=== PATIENT | male | born 1940 | race Caucasian/White ===

== ENCOUNTER 2018-04-11 08:57 | Day surgery (SDC) | payer BC, MEDICARE ==
[~2018-04-11] VITALS: Ht 182.9 cm; Wt 91.2 kg
[~2018-04-11 08:57] MED LIST: ASP81TEC PO; ATR20T PO; CLC500CT PO; CPR500T PO; FNST5T PO; KETO-22 PO; MELA5CAP PO; MTP25TSR PO; TERA5CAP10 PO
--- OUTSIDE RECORDS SUMMARY | 2018-04-11 10:06 | XMS REPORT | Encounter Summary ---
Author Author [facility] Organization [facility] Address Unknown Phone Unavailable Care Team Providers Care Cooler Supervisor Name Role Phone Kailash Richardson MD, [facility] Unavailable Andrew Lemus MD Unavailable Sylvia Lynn RN Unavailable Unavailable Adonis Madsen MD PCP Reason for Visit * Reason Comments Test/procedure Enrollment confirmed for 30 day non looping [facility] Cardiolabs Encounter Details Date Type Department Care Team Description 04/05/2018 Documentation Cardiovascular Medicine Marcia Renee Test/procedure [facility] (Enrollment confirmed for [address] 30 day [place] [address] Cardiolabs) [phone] Social History Tobacco Use Types Packs/Day Years Used Date Never Smoker Smokeless Tobacco: Never Used Alcohol Use Drinks/Week oz/Week Comments Yes 9 Glasses of 45.0 wine and beer wine Sex Assigned at Date Recorded Not on file as of this encounter Functional Status Functional Status Response Date of Assessment Does the patient have a hearing impairment: No 01/26/2016 as of this encounter Progress Notes * Marcia Renee - 04/05/2018 5:29 PM [employer] Brand: Cardiolabs Type: Non-looping Length: 30 day Ordering Lisa Mcadams Diagnosis: I48.0 Afib, I44.7 LBBB Was insurance info faxed with enrollment: Insurance submitted with online enrollment in this encounter Plan of Treatment Not on fileas of this encounter Visit Diagnoses Not on filein this encounter
--- OUTSIDE RECORDS SUMMARY | 2018-04-11 10:06 | XMS REPORT | Encounter Summary ---
Author Author [facility] Organization [facility] Address Unknown Phone Unavailable Care Team Providers Care Felt Carbonizer Name Role Phone Kailash Richardson MD, [facility] Unavailable Andrew Lemus MD Unavailable Sylvia Lynn RN Unavailable Unavailable Adonis Madsen MD PCP Reason for Visit * Reason Comments Patient Questions Encounter Details Date Type Department Care Team Description 04/05/2018 Telephone Cardiovascular Medicine Evangelina Mccain [facility] [address] [place] [address] [phone] [place] [address] Social History Tobacco Use Types Packs/Day Years Used Date Never Smoker Smokeless Tobacco: Never Used Alcohol Use Drinks/Week oz/Week Comments Yes 9 Glasses of 45.0 wine and beer wine Sex Assigned at Date Recorded Not on file as of this encounter Functional Status Functional Status Response Date of Assessment Does the patient have a hearing impairment: No 01/26/2016 as of this encounter Miscellaneous Notes * Telephone Encounter - Evangelina Mccain RN - 04/05/2018 12:44 PM AVIATION NEUROPSYCHOLOGIST Notified patient KING will be put in the mail today. He will use his heart card with symptoms and periodically when he is not having symptoms over the next one month. ----- Message from Ashley Conrad LPN sent at 04/05/2018 9:57 AM AVIATION NEUROPSYCHOLOGIST ----- Regarding: FRONT DESK COORDINATOR- HM ? VM from patient on triage line. Said that FRONT DESK COORDINATOR wanted him to have holter monitor when he was done with the Tikosyn and it will tomorrow. He still does not have the monitor. Call back on cell. in this encounter Plan of Treatment Not on fileas of this encounter Visit Diagnoses Not on filein this encounter
--- OUTSIDE RECORDS SUMMARY | 2018-04-11 10:06 | XMS REPORT | Encounter Summary ---
Author Author [facility] Organization [facility] Address Unknown Phone Unavailable Care Team Providers Care Loan Representative Name Role Phone Kailash Richardson MD, FACC Unavailable Andrew Lemus MD Unavailable Sylvia Lynn RN Unavailable Unavailable Adonis Madsen MD PCP Reason for Referral * (Routine) Status Reason Specialty Diagnoses / Referred By Referred To Procedures Contact Contact New Request Procedures Jane Mcadams REQUEST FOR MD [facility] [address] [facility] [address] [place] [address] Reason for Visit * Reason Comments Paroxysmal Afib 1 month f/u s/p LAAA Encounter Details Date Type Department Care Team Description 03/08/2018 Office Visit Cardiovascular Medicine Jane Mcadams MD Paroxysmal Afib (1 month [place] [id number] [facility] [facility] s/p LAAA) [address] [place] [address] [place] [address] Social History Tobacco Use Types Packs/Day Years Used Date Never Smoker Smokeless Tobacco: Never Used Alcohol Use Drinks/Week oz/Week Comments Yes 9 Glasses of 45.0 wine and beer wine Sex Assigned at Date Recorded Not on file as of this encounter Last Filed Vital Signs Vital Sign Reading Time Taken Blood Pressure 122/66 03/08/2018 3:05 PM CDT Pulse 76 03/08/2018 3:05 PM CDT Temperature - - Respiratory Rate - - Oxygen Saturation - - Inhaled Oxygen - - Concentration Weight 90.7 kg (200 lb) 03/08/2018 3:05 PM CDT Height 180.3 cm (5' 11") 03/08/2018 3:05 PM CDT Body Mass Index 27.89 03/08/2018 3:05 PM CDT in this encounter Functional Status Functional Status Response Date of Assessment Does the patient have a hearing impairment: No 01/26/2016 as of this encounter Instructions * Patient Instructions - Evangelina Mccain RN - 03/08/2018 3:15 PM CDT Stop your Tikosyn after your current bottle is finished. Dr. Mcadams has ordered an Event monitor for you to use for 30 days in about one month. This monitor is shipped directly to your home and comes with detailed instructions. This will come from a company named [employer]. They will verify your insurance and contact you for outstanding cost. If you are concerned about cost(or have not received a call), when the package arrives you can call the 800 number that will be in the instructions and ask about cost prior to starting the event monitor. If you have not received the monitor within 2 weeks time; please call us at [phone] to let us know. We will investigate the delay and get back with you. Please schedule an appointment with Dr. Mcadams in 3 months. To schedule an appointment, please call [phone]. In order to provide you the best care possible we ask that you follow up as below: Please consider signing up for [employer]. For all questions, please call the nursing triage voicemail at [phone] Monday - Monday 8-5 only. Please leave a detailed message with your name, date of , and reason for your call. Please allow ~ 10 business days for the results of any testing to be reviewed. Please call our office if you have not heard from a nurse within this time frame in this encounter Progress Notes * Jane Mcadams MD - 03/08/2018 3:15 PM CDT Formatting of this note may be different from the original. Date of Service: 03/08/2018 Baltazar Parker is a 77 y.o. male. HPI Baltazar Parker presents to my office today in electrophysiology follow-up for history of atrial arrhythmias. As you know, he is a pleasant 77-year-old male with a past medical history paroxysmal atrial fibrillation, hypertension, moderate coronary artery disease, and underlying left bundle branch block who was last seen in the office by me in December. At that time, we discussed options for treatment of his atrial arrhythmias and opted to pursue ablation. The patient was taken the EP lab on 01/11/2018 where cryoablation was performed without difficulty. His post op course was uncomplicated and he was discharged home the following day. Baltazar returns to my office today accompanied by his . He tells me that he is doing well. He has had no chest pain, dizziness, syncope, or palpitations. He is walking 2 miles on the track about 3 times a week. He recalls one episode of A. fib that occurred the day after he was discharged home. It lasted about 24 hours. He described a sensation of aching along with palpitations and some shortness of breath. It was eventually resolved on its own. He has not had recurrence since. Vitals: 03/08/18 1505 BP: 122/66 Pulse: 76 Weight: 90.7 kg (200 lb) Height: 1.803 m (5' 11") Body mass index is 27.89 kg/m. Past Medical History Patient Active Problem List Diagnosis Date Noted Bradycardia with 41-50 beats per minute 01/27/2016 PAF (paroxysmal atrial fibrillation) ([facility]) 08/05/2015 01/26/16 Elective admission for Tikosyn loading 08/30/17 Echo: LVEF=65% With Abnormal Septal Motion. Moderate Concentric LVH. Normal Chamber Dimensions Qualitatively. Aortic Valve Sclerosis. Trace Mitral Valve Regurgitation. No Pericardial effusion. Mild Aortic Root Dilatation. PASP= 28mmHg 01/11/18-atrial fib ablation ([facility]) by Dr. Mcadams Chronic anticoagulation, on apixaban 08/05/2015 Ureteral stone 04/15/2010 Hyperlipidemia 03/22/2010 Essential hypertension 08/11/2008 Syncope 08/11/2008 A. 09/2008- Event monitor. LBBB (left bundle branch block) 08/11/2008 BPH (benign prostatic hypertrophy) 08/11/2008 Abnormal cardiovascular stress test 08/11/2008 CAD (coronary artery disease) 08/11/2008 08/04/08- Persantine myoview stress test at [facility]: Strong suspicion of mild reversible ischemia involving the anteroapical segment and true apex of the left ventricle. EF 58%. 08/11/08- Heart catherization at : Mild to moderate coronary artery disease. No evidence of high grade obstructive coronary disease. Low-normal ejection fraction. EF 50-55%. Left ventricular hypertrophy. Normal LVEDP. ROS Physical Exam GEN: well developed, well nourished, in no acute distress HEENT: unremarkable, no JVD CHEST: clear to auscultation bilaterally CV: Reg rhythm, nml rate; nml S1 & S2, no S3 or S4; no rub; 1/6 systolic murmur at RUSB ABD: soft, nontender, non-distended, positive bowel sounds EXT: no clubbing, cyanosis, or edema, 2+ distal pulses NEURO: alert and oriented x3, no focal deficits Cardiovascular Studies 12 lead EKG: Sinus rhythm, ventricular rate 76 bpm, LBBB, QRSd 154 msec, QTc 550 msec Problems Addressed Today Encounter Diagnoses Name Primary? PAF (paroxysmal atrial fibrillation) ([facility]) Yes LBBB (left bundle branch block) Assessment and Plan PAF (paroxysmal atrial fibrillation) ([facility]) Mr. Parker had one episode of atrial fibrillation that occurred just after discharge from his ablation. Since that time, he has done well without any recurrence. He is now 2 months status post ablation. I am going to continue tikosyn for another 30 days. At that time, he will discontinue it and will use a 30-day heart card monitor. I will see him back in follow-up in 3 months time for post ablation CTA. He is very happy with this plan. I have asked the patient to follow up with me in 3 months. Current Medications (including today's revisions) apixaban (ELIQUIS) 5 mg tab tablet Take 1 Tab by mouth twice daily. 08/05/15 Take 6 hours post hemostasis after cardiac cath. atorvastatin (LIPITOR) 20 mg PO tablet Take 20 mg by mouth at bedtime daily. Cod Liver Oil cap Take 2 Caps by mouth daily. dofetilide (TIKOSYN) 500 mcg capsule Take one capsule by mouth every 12 hours. finasteride (PROSCAR) 5 mg tablet Take 5 mg by mouth Daily. pantoprazole DR (PROTONIX) 40 mg tablet Take 1 tablet twice daily for 6 weeks after your ablation. sucralfate (CARAFATE) 1 gram tablet Take one tablet by mouth twice daily before meals. Take on an empty stomach. terazosin (HYTRIN) 5 mg capsule Take 5 mg by mouth at bedtime daily. in this encounter Miscellaneous Notes * Assessment & Plan Note - Jane Mcadams MD - 03/08/2018 4:13 PM CDT Associated Problem(s): PAF (paroxysmal atrial fibrillation) ([facility]) Mr. Parker had one episode of atrial fibrillation that occurred just after discharge from his ablation. Since that time, he has done well without any recurrence. He is now 2 months status post ablation. I am going to continue tikosyn for another 30 days. At that time, he will discontinue it and will use a 30-day heart card monitor. I will see him back in follow-up in 3 months time for post ablation CTA. He is very happy with this plan. in this encounter Plan of Treatment Name Priority Associated Diagnoses Order Schedule ECG 12-LEAD Routine PAF (paroxysmal atrial Ordered: 03/08/2018 fibrillation) ([facility]) LBBB (left bundle branch block) EVENT MONITOR Routine PAF (paroxysmal atrial Expected: 04/07/2018 fibrillation) ([facility]) (Approximate), Expires: LBBB (left bundle branch 03/08/2019 block) as of this encounter Procedures Procedure Name Priority Date/Time Associated Diagnosis Comments ECG-SCAN 03/08/2018 Results for this 4:20 PM CDT procedure are in the results section. in this encounter Results * ECG-SCAN (03/08/2018 4:20 PM) Narrative Performed At Ordered by an unspecified provider. in this encounter Visit Diagnoses Diagnosis PAF (paroxysmal atrial fibrillation) ([facility]) - Primary Atrial fibrillation LBBB (left bundle branch block) Other left bundle branch block
--- OUTSIDE RECORDS SUMMARY | 2018-04-11 10:06 | XMS REPORT | Encounter Summary ---
Author Author [facility] Organization [facility] Address Unknown Phone Unavailable Care Team Providers Care Haunted History Tour Guide Name Role Phone Kailash Richardson MD, FACC Unavailable Andrew Lemus MD Unavailable Sylvia Lynn RN Unavailable Unavailable Adonis Madsen MD PCP Reason for Visit * Reason Comments Other cta requested Encounter Details Date Type Department Care Team Description 03/20/2018 Telephone Cardiovascular Medicine Arleen Mackey, RASHARD Other ( cta requested) [address] [address] Social History Tobacco Use Types Packs/Day Years [...] encounter Miscellaneous Notes * Telephone Encounter - Arleen Mackey RN - 03/20/2018 1:05 PM ELECTRONIC WIRER ----- Message from Evangelina Mccain RN sent at 03/19/2018 3:40 PM ELECTRONIC WIRER ----- Regarding: CCTA request for 06/13 Requesting CCTA s/p LAAA AF TISSUE PACKER Requesting same day as OV on 06/13. Thanks! in this encounter Plan of Treatment Not on fileas of this encounter Visit Diagnoses Not on filein this encounter
--- OUTSIDE RECORDS SUMMARY | 2018-04-11 10:06 | XMS REPORT | Clinical Summary ---
Author Author [facility] Organization [facility] Address Unknown Phone Unavailable Care Team Providers Care Front Line Leader Name Role Phone Kailash Richardson MD, [facility] Unavailable Andrew Lemus MD Unavailable Sylvia Lynn RN Unavailable Unavailable Adonis Madsen MD PCP Source Comments Some departments are not documenting in the electronic medical record. If you do not see the information that you expected, contact Release of Information in the Health Information Management department at [phone] for further assistance in locating additional records.[facility] Allergies Active Allergy Reactions Severity Noted Date Comments Iodine RASH Medium 09/21/2015 Current Medications Prescription Sig. Disp. Refills Start End Date Status Date finasteride (PROSCAR) 5 Take 5 mg by mouth Daily. Active mg tablet atorvastatin (LIPITOR) 20 Take 20 mg by mouth at Active mg PO tablet bedtime daily. Cod Liver Oil cap Take 2 Caps by mouth Active daily. apixaban (ELIQUIS) 5 mg Take 1 Tab by mouth twice 08/05/19 Active tab tabletIndications: daily. 08/05/15 Take 6 16 Essential hypertension, hours post hemostasis LBBB (left bundle branch after cardiac cath. block), Coronary artery disease involving zuni coronary artery of zuni heart, angina presence unspecified, Hyperlipidemia, unspecified hyperlipidemia type, PAF (paroxysmal atrial fibrillation) (HCC), Chronic anticoagulation terazosin (HYTRIN) 5 mg Take 5 mg by mouth at Active capsule bedtime daily. pantoprazole DR Take 1 tablet twice daily 30 tablet 0 01/13/20 Active (PROTONIX) 40 mg for 6 weeks after your 18 tabletIndications: PAF ablation. (paroxysmal atrial fibrillation) ([facility]) sucralfate (CARAFATE) 1 Take one tablet by mouth 60 tablet 0 01/13/20 Active gram tabletIndications: twice daily before meals. 18 PAF (paroxysmal atrial Take on an empty stomach. fibrillation) ([facility]) dofetilide (TIKOSYN) 500 Take one capsule by mouth 120 capsule 3 01/12 Active mcg capsuleIndications: every 12 hours. 18 PAF (paroxysmal atrial fibrillation) ([facility]) Active Problems Problem Noted Date Bradycardia with 41-50 beats per minute 01/27/2016 PAF (paroxysmal atrial fibrillation) ([facility]) 08/05/2015 Overview: 01/26/16 Elective admission for Tikosyn loading 08/30/17 Echo: LVEF=65% With Abnormal Septal Motion. Moderate Concentric LVH. Normal Chamber Dimensions Qualitatively. Aortic Valve Sclerosis. Trace Mitral Valve Regurgitation. No Pericardial effusion. Mild Aortic Root Dilatation. PASP=28mmHg 01/11/18-atrial fib ablation (PVI) by Dr. Mcadams Last Assessment & Plan: Mr. Parker had one episode of atrial [...] He is very happy with this plan. Chronic anticoagulation, on apixaban 08/05/2015 Ureteral stone 04/15/2010 Hyperlipidemia 03/22/2010 Essential hypertension 08/11/2008 Syncope 08/11/2008 Overview: A09/2008- Event monitor. L ast Assessment & Plan: He has had no recent dizzy spells or syncope. We will continue to monitor him clinically. LBBB (left bundle branch block) 08/11/2008 BPH (benign prostatic hypertrophy) 08/11/2008 Abnormal cardiovascular stress test 08/11/2008 CAD (coronary artery disease) 08/11/2008 Overview: 08/04/08- Persantine myoview stress test at [facility]: Strong suspicion of mild reversible ischemia involving the anteroapical segment and true apex of the left ventricle. EF 58%. 08/11/08- Heart catherization at : Mild to moderate coronary artery disease. No evidence of high grade obstructive coronary disease. Low-normal ejection fraction. EF 50-55%. Left ventricular hypertrophy. Normal LVEDP. Encounters Date Type Specialty Care Team Description 04/05/2018 Documentation Cardiology Marcia Renee Test/procedure (Enrollment confirmed for 30 day non looping EVM Cardiolabs) 04/05/2018 Telephone Cardiology Evangelina Mccain RN Patient Questions 03/20/2018 Telephone Cardiology Arleen Mackey RN Other (cta requested ) 03/08/2018 Office Visit Cardiology Jane Mcadams MD Paroxysmal Afib (1 month f/u s/p LAAA) 01/18/2018 Telephone Cardiology Gina Landis RN Follow-up Phone Call (f/u LAAA 01/10/18 ) 01/11/2018 Hospital Cardiology Jane Mcadams MD No Show Encounter 01/11/2018 Hospital Cardiology Jane Mcadams MD PAF (paroxysmal atrial - Encounter fibrillation) ([facility]) 01/12/2018 01/11/2018 Procedure Pass Cardiology 01/11/2018 Surgery Cardiology Jane Mcadams MD INTRACARDIAC CATHETER ABLATION WITH COMPREHENSIVE ELECTROPHYSIOLOGIC EVALUATION - ATRIAL FIBRILLATION - CRYO - TRANSEPTAL 01/03/2018 Anesthesia Cardiology Yulissa Hare A, Event ANIMAL TECH from Last 3 Months Immunizations Name Dates Previously Given Next Due Flu Vaccine Trivalent >64 01/27/2016 Yo High-dose (Preservative Free) Family History Medical History Relation Name Comments Cancer Father Relation Name Status Comments Brother Alive healthy Child 4 children Alive healthy Father lung cancer (Age 75) Mother CHF (Age 82) Sister Alive parkinson's disease Social History Tobacco Use Types Packs/Day Years Used Date Never Smoker Smokeless Tobacco: Never Used Alcohol Use Drinks/Week oz/Week Comments Yes 9 Glasses of 45.0 wine and beer wine Sex Assigned at Date Recorded Not on file Last Filed Vital Signs Vital Sign Reading Time Taken Blood Pressure 122/66 03/08/2018 3:05 PM CDT Pulse 76 03/08/2018 3:05 PM CDT Temperature 36.5 C (97.7 F) 01/12/2018 8:20 AM CDT Respiratory Rate - - Oxygen Saturation 94% 01/12/2018 8:20 AM CDT Inhaled Oxygen - - Concentration Weight 90.7 kg (200 lb) 03/08/2018 3:05 PM CDT Height 180.3 cm (5' 11") 03/08/2018 3:05 PM CDT Body Mass Index 27.89 03/08/2018 3:05 PM CDT Plan of Treatment Health Maintenance Due Date Last Done Comments PHYSICAL (COMPREHENSIVE) 1947 EXAM DTAP/TDAP VACCINES (1 - 1959 Tdap) SHINGLES RECOMBINANT 1991 VACCINE (1 of 2) PNEUMONIA (PCV13/PPSV23) 2006 VACCINES (1 of 2 - PCV13) INFLUENZA VACCINE 12/06/2017 01/27/2016, 02/10/2010, 01/30/2009 Procedures Procedure Name Priority Date/Time Associated Diagnosis Comments ECG-SCAN 03/08/2018 Results for this 4:20 PM CDT procedure are in the results section. TELEMETRY STRIPS-SCAN 01/17/2018 Results for this 9:54 AM CDT procedure are in the results section. ECG-SCAN 01/13/2018 Results for this 10:30 PM CDT procedure are in the results section. ECG-SCAN 01/13/2018 Results for this 10:30 PM CDT procedure are in the results section. MAGNESIUM Add on 01/12/2018 Results for this 4:00 AM CDT procedure are in the results section. CBC Routine 01/12/2018 Results for this 4:00 AM CDT procedure are in the results section. BASIC METABOLIC PANEL Routine 01/12/2018 Results for this 4:00 AM CDT procedure are in the results section. ECG 12-LEAD Routine 01/12/2018 2:00 AM CDT COMPREHENSIVE Routine 01/11/2018 Results for this ELECTROPHYSIOLOGIC 2:01 PM CDT procedure are in the EVALUATION WITH CORONARY results section. SINUS/ LEFT ATRIUM INTRACARDIAC CATHETER Routine 01/11/2018 Results for this ABLATION WITH 2:01 PM CDT procedure are in the COMPREHENSIVE results section. ELECTROPHYSIOLOGIC EVALUATION - ATRIAL FIBRILLATION POC ACTIVATED CLOTTING 01/11/2018 Results for this TIME 12:18 PM CDT procedure are in the results section. ECG 12-LEAD Routine 01/11/2018 12:13 PM CDT POC ACTIVATED CLOTTING 01/11/2018 Results for this TIME 12:07 PM CDT procedure are in the results section. POC ACTIVATED CLOTTING 01/11/2018 Results for this TIME 11:16 AM CDT procedure are in the results section. POC ACTIVATED CLOTTING 01/11/2018 Results for this TIME 10:44 AM CDT procedure are in the results section. POC ACTIVATED CLOTTING 01/11/2018 Results for this TIME 10:16 AM CDT procedure are in the results section. POC ACTIVATED CLOTTING 01/11/2018 Results for this TIME 9:56 AM CDT procedure are in the results section. KAMAR W/O CONTRAST Routine 01/11/2018 Atrial fibrillation, Results for this 9:21 AM CDT unspecified type (HCC) procedure are in the results section. PROTIME INR (PT) STAT 01/11/2018 Results for this 7:30 AM CDT procedure are in the results section. TYPE & CROSSMATCH Routine 01/11/2018 Results for this 6:23 AM CDT procedure are in the results section. CBC STAT 01/11/2018 Results for this 6:23 AM CDT procedure are in the results section. MAGNESIUM STAT 01/11/2018 Results for this 6:23 AM CDT procedure are in the results section. BASIC METABOLIC PANEL STAT 01/11/2018 Results for this 6:23 AM CDT procedure are in the results section. from Last 3 Months Results * ECG-SCAN (03/08/2018 4:20 PM) Narrative Performed At Ordered by an unspecified provider. * TELEMETRY STRIPS-SCAN (01/17/2018 9:54 AM) Narrative Performed At Ordered by an unspecified provider. * ECG-SCAN (01/13/2018 10:30 PM) Narrative Performed At Ordered by an unspecified provider. * ECG-SCAN (01/13/2018 10:30 PM) Narrative Performed At Ordered by an unspecified provider. * CBC (01/12/2018 4:00 AM) Only the most recent of 2 results within the time period is included. White Blood Cells 13.7 (H) 4.5 - 11.0 K/UL [facility] RBC 3.73 (L) 4.4 - 5.5 M/UL [facility] Hemoglobin 12.2 (L) 13.5 - 16.5 GM/DL [facility] Hematocrit 35.5 (L) 40 - 50 % MAIN LAB MCV 95.0 80 - 100 FL [facility] MCH 32.7 26 - 34 PG MAIN LAB MCHC 34.4 32.0 - 36.0 G/DL MAIN LAB RDW 13.1 11 - 15 % [facility] Platelet Count 203 150 - 400 K/UL MAIN LAB MPV 7.4 7 - 11 FL MAIN LAB Specimen Blood Performing Organization Address [facility] Phone Number [facility] [address] [place] [address] * MAGNESIUM (01/12/2018 4:00 AM) Only the most recent of 2 results within the time period is included. Magnesium 2.1 1.6 - 2.6 mg/dL MAIN LAB Performing Organization Address [facility] Phone Number [facility] [address] [place] [address] * BASIC METABOLIC PANEL (01/12/2018 4:00 AM) Only the most recent of 2 results within the time period is included. Sodium 135 (L) 137 - 147 MMOL/L MAIN LAB Potassium 3.9 3.5 - 5.1 MMOL/L [facility] Chloride 105 98 - 110 MMOL/L [facility] CO2 24 21 - 30 MMOL/L [facility] Anion Gap 6 3 - 12 [facility] Glucose 111 (H) 70 - 100 MG/DL [facility] Blood Urea Nitrogen 16 7 - 25 MG/DL MAIN LAB Creatinine 1.00 0.4 - 1.24 MG/DL MAIN LAB Calcium 8.5 8.5 - 10.6 MG/DL MAIN LAB eGFR Non >60 >60 mL/min [facility] Comment: The eGFR is not validated for use in drug dosing adjustments.Continue to use estimated creatinine clearance per dosing reference text.Please contact the Clinical Pharmacist for questions. eGFR >60 >60 mL/min [facility] Comment: The eGFR is not validated for use in drug dosing adjustments.Continue to use estimated creatinine clearance per dosing reference text.Please contact the Clinical Pharmacist for questions. Specimen Blood Performing Organization Address [facility] Phone Number [facility] [address] [place] [address] * EP STUDY (01/11/2018 2:01 PM) Impressions Performed At : OTHER OUTSIDE LAB Paroxysmal Atrial Fibrillation status post successful cryoballoon pulmonary vein isolation Intra-atrial pacing and intraventricular pacing. High dose isoproterenol infusion PLAN: - Sheaths out once ACT less than 250 - Will monitor patient overnight at the hospital. - Check access site/sites in the morning. - Continue anticoagulation with eliquis - Rhythm control medication: Start/Resume tikosyn for at least 3 months - Resume/Continue PPI at 40 mg twice daily for 6 weeks - Resume/Continue sucralfate at 1 gram twice daily for 4 weeks - IV diuresis and potassium replacement as needed. - The patient will be contacted in one week's time to assess for symptoms. - Outpatient follow up with me in 4 weeks. Narrative Performed At OTHER OUTSIDE LAB ELECTROPHYSIOLOGY PROCEDURE PROCEDURES: AFIB Ablation by PVI Pulmonary Vein Antral Isolation (28 mm Cryoballoon) EP study with CS catheter placement and pacing Intra-atrial pacing and intraventricular pacing. Single transseptal puncture General Anesthesia Right and left heart catheterization Intracardiac echocardiography Ultrasound for venous access Three-dimensional intracardiac electroanatomic mapping Acute drug testing/IV Drug-Isuprel Administration Esophagram/Esosure Stylet Esophageal Mobilization BRIEF SUMMARY: Mr. Parker is a 77 year old male with a past medical history of paroxysmal atrial fibrillation, moderate CAD, and sinus node dysfunction with LBBB who presents to the hospital for elective atrial fibrillation ablation.The patient has had an increasing AF burden. ATTENDING: Jane Mcadams MD INDICATION FOR PROCEDURE: Symptomatic paroxysmal atrial fibrillation intolerant or refractory to anti-arrhythmic medication KAMAR done prior to the procedure showed atrial enlargement with no left atrial thrombus. CONSENT: The risks, benefits and alternatives to the procedure have been described to the patient in detail. All questions wre answered.The patient expressed understanding and has agreed to proceed. PRESENTATING RHYTHM:Sinus Rhythm. DETAILS OF PROCEDURE: The patient was brought to the EP Lab in a fasting state after informed and written consent was obtained. Cardiac rhythm, blood pressure, heart rate, respirations, oxygen saturation and level of consciousness were monitored prior to, throughout and after the procedure. General anesthesia was administered by trained staff members with the supervision of an anesthesiology attending. The patient was placed supine on the fluoroscopy table, prepped and draped in the usual sterile fashion. Local anesthetic was provided. Ultrasound was utilized to confirm femoral venous patency. Needle access was obtained under ultrasound guidance and a permanent recording obtained.Venous access was obtained using a micropuncture needle in the right and left femoral veins under fluoroscopic/anatomic and ultrasound guidance using the modified Seldinger technique.Guidewires were placed through each venous access brett 14 Fr short sheath and 6 Fr short sheath was placed in the right femoral vein and an 11 Fr intermediate length and 6 Fr short sheath were placed in the left femoral vein. PRE-PROCEDURE IMAGING: A [address] Angiogram was obtained and reviewed prior to the procedure which demonstrated two left pulmonary vein ostia and two right pulmonary vein ostia. The left atrium was moderately enlarged. INTRACARDIAC ECHO:Intracardiac echocardiography was performed under the guidance of fluoroscopy from the mid right atrium. Cardiac anatomy was assessed. There was trace baseline pericardial effusion. The left atrial size was enlarged. No thrombus was seen.Post-procedure, the intracardiac echocardiogram was repeated and there remained trace pericardial effusion. CATHETER PLACEMENT:The intracardiac echo catheter was advanced via the left femoral vein to the mid-right atrium. 20 mm Achieve Lasso catheter was advanced through the cryoballoon and the 28 mm Cryoballoon catheter were advanced via the Medtronic sheath into the left atrium after transseptal puncture.A deflectable decapolar catheter was advanced via the left femoral vein with the distal 10 poles in the CS. SINGLE TRANSSEPTAL PUNCTURE: We used the transseptal needle under the guidance of fluoroscopic images and intracardiac echo. The intra-atrial septum was punctured and left atrial access obtained. Pressure from the first puncture was 13/1 mm of Hg. Transseptal puncture occurred without difficulty. Immediately after puncture and prior to advancing the sheath, contrast was injected to confirm appropriate left atrial location. The septum was crossed at 5 o'clock. Anticoagulation with Heparin IV bolus was immediately provided after puncture. We titrated the heparin drip per protocol to keep ACT greater than 350 throughout the left atrial ablation. ACT's were checked every 15-20 minutes and adjusted per protocol. THREE DIMENSIONAL ELECTROANATOMIC MAPPING: An electro-anatomical map of portions of the left atrium was created utilizing the iList system using movement of the Achieve lasso catheter. PULMONARY VENOUS CRYOBALLOON ISOLATION: Pulmonary vein potentials were identified at the antra of each vein at baseline. Left superior pulmonary vein (LSPV) Attention was first directed to the left superior pulmonary vein. The Achieve catheter was advanced into the vein and the balloon was advanced to the ostium of the vein with care taken to make sure the balloon was not directed too far into the vein by monitoring the shape of the balloon on inflation.Contrast was injected once the balloon was inflated and confirmed that there was complete seal. Left inferior pulmonary vein (LIPV) Attention was then directed to the left inferior pulmonary vein. The Achieve catheter was advanced into the vein and the balloon was advanced to the ostium of the vein with care taken to make sure the balloon was not directed too far into the vein by monitoring the shape of the balloon on inflation.Contrast was injected once the balloon was inflated and confirmed that there was complete seal.We had significant temperature drop with cryoablation.Therefore, a esosure esophageal mobilizer was inserted to move the esophagus more posteriorly and rightward. Right superior pulmonary vein (RSPV) Attention was then directed to the right superior pulmonary vein. The Achieve catheter was advanced into the vein and the balloon was advanced to the ostium of the vein with care taken to make sure the balloon was not directed too far into the vein by monitoring the shape of the balloon on inflation. Contrast was injected once the balloon was inflated and confirmed that there was complete seal. Pacing of the right phrenic nerve was performed from the right subclavian vein and the right diaphragm capture monitored by palpation and CMAP during freezing. Right inferior pulmonary vein (RIPV) Attention was then directed to the right inferior pulmonary vein. The Achieve catheter was advanced into the vein and the balloon was advanced to the ostium of the vein with care taken to make sure the balloon was not directed too far into the vein by monitoring the shape of the balloon on inflation. Contrast was injected once the balloon was inflated and confirmed that there was complete seal. Pacing of the right phrenic nerve was performed from the right subclavian vein and the right diaphragm capture monitored by palpation and CMAP during freezing. Location Temp @ 30 Sec Time To Isolation Minimum Temp Duration Eso Temp Time to Zero LSPV -32 43 -47 127 22.5 11 LSPV -32 - -46 180 24.4 10 LIPV -34 49 -44 61 19.6 5 LIPV -34 - -45 101 26.4 7 RIPV -34 41 -46 180 35.2 7 RIPV -37 - -53 180 35.1 11 RSPV -38 26 -54 180 35 11 RSPV -38 - -55 150 35 10 Access Time 09:15 TS Time 09:43Physician: Dr. Mcadams Pre TS Fluoro 4 minDate: 01/11/2018 Cryo In 09:54 Cryo Out 11:35 LA Dwell Time 1:41 Total Fluoro 24 min Pulmonary vein conduction was then reassessed in each vein. Post ablation, pacing was done within and outside of the pulmonary vein to demonstrate conduction block both into and out of the vein.The total time from last ablation lesion to re-confirmation of pulmonary vein entrance block was about 20 minutes. After completion of ablation, an EP study was performed including left atrial pacing and recording. An esophageal temperature probe was used to monitor temperatures on the posterior wall. The esophagus course was leftward.We were prepared to came off cryo immediately when the esophageal temperature probe decreased to less than 28 degrees Celsius.We came off early for a temperature drop with ablation at the left inferior pulmonary vein.The minimum temperature obtained was 19.6 degrees C. The anesthesia personnel in the room moved the esophageal temperature probe in line with the level of ablation when treating the posterior wall. The electrophysiology nurse, anesthesia staff and physician continuously monitored the temperature. Dissociated Firing of the PVs: Did not occur. Vagal Effect: No marked response was present. Atrial Scarring: was not present. ESOPHAGOGRAM AND ESOPHAGEAL MOBILIZATION: An OG tube was inserted by our anesthesia colleagues prior to ablation. Liquid barium (40 mL) was injected via orogastric tube and the esophagus was visualised underfluroscopy. It was very close to the left-sided pulmonary veins. We then inserted mineral oil to lubricate the OG tube. The esosure stylet was then inserted into the orogastric tube. Its curve then retracted the esophagus to the opposite side so we could perform ablation on the left-sided veins with less temperature deviation. INTRAATRIAL PACING: Entrance and exit block across all four PVs was confirmed by intra-atrial pacing and by pacing inside each vein. DRUG INFUSION: Isoproterenol 20 mcg/min was initiated for 5 minutes. During this time, the patient had no atrial fibrillation. There was no significant atrial ectopy. Adenosine was not administered. RAPID PACING: Rapid atrial pacing x3 to 250 msec from the proximal CS did not induce atrial fibrillation or atrial flutter. DIAGNOSTIC EP STUDY: Intervals: Sinus, CL 800 msec, P wave duration 105 msec, NY interval 122 msec, QRSd 171 msec, QT 507 msec. AH interval 101 msec, HV interval 79 msec. LBBB AV Wenkebach: 350 msec VA Wenkebach: 420 msec. AV shan ERP: 600/<270 msec. Atrial ERP: 600/270 msec. The patient tolerated the procedure well. Dr. Mcadams was present throughout the procedure. Post ablation intracardiac echo showed no change in pericardial effusion or LA thrombus. FLUOROSCOPY TIME: 1148 seconds LEFT ATRIAL DWELL TIME: 1 minute 41 seconds Performing Organization Address [facility]/[employer] Phone Number OTHER OUTSIDE LAB * POC ACTIVATED CLOTTING TIME (01/11/2018 12:18 PM) Only the most recent of 2 results within the time period is included. Activated Clotting Time 232 s [facility]IN [facility] Performing Organization Address [facility] Phone Number [employer] [facility] [address] [place] [address] * POC ACTIVATED CLOTTING TIME (01/11/2018 11:16 AM) Only the most recent of 4 results within the time period is included. Activated Clotting Time 358 s [facility] Performing Organization Address [facility] Phone Number [employer] [facility]IN [facility] [address] [place] [address] * TRANSESOPHAGEAL ECHOCARDIOGRAM (01/11/2018 9:21 AM) BSA 2.1 m2 OTHER OUTSIDE LAB Referring Provider Adonsi Madsen OTHER OUTSIDE LAB CV ECHO PV CARD STRIPPER EP staff OTHER OUTSIDE LAB Cardiology Ultrasound Siemens [id number] OTHER OUTSIDE LAB Machine ECHO EF 65 % OTHER OUTSIDE LAB Narrative Performed At OTHER OUTSIDE LAB KAMAR performed in EP labs to evaluate [place]. 1. Normal LV size, wall motion with EF=65%. No intracardiac/[place] thrombus. 2. Moderate concentric LVH. 3. Normal RV size and function. 4. Normal LA & RA size. 5. No significant valvular abnormality. 6. No pericardial effusion. Performing Organization Address [employer] Phone Number OTHER OUTSIDE LAB * PROTIME INR (PT) (01/11/2018 7:30 AM) INR 1.2 0.8 - 1.2 [employer] MAIN LAB Specimen Blood Performing Organization Address [facility] Phone Number [employer] MAIN [facility] [address] [place] [address] * TYPE & CROSSMATCH (01/11/2018 6:23 AM) Units Ordered 2 MAIN LAB Crossmatch Expires 01/14/2018 MAIN LAB Record Check FOUND [facility] ABO/RH(D) O POS MAIN LAB Antibody Screen NEG [facility] Electronic Crossmatch YES MAIN LAB Specimen Blood Performing Organization Address City/State/Zipcode Phone Number MAIN [facility] [address] [place] [address] from Last 3 Months
--- OUTSIDE RECORDS SUMMARY | 2018-04-11 10:07 | XMS REPORT | Encounter Summary ---
Author Author [facility] Organization [facility] Address Unknown Phone Unavailable Care Team Providers Care Guest Relations Agent Name Role Phone Kailash Richardson MD, [facility] Unavailable Andrew Lemus MD Unavailable Sylvia Lynn RN Unavailable Unavailable Adonis Madsen MD PCP Reason for Visit * Reason Comments Follow-up Phone Call f/u [facility] 01/10/18 Encounter Details Date Type Department Care Team Description 01/18/2018 Telephone Cardiovascular Medicine Gina Landis, RASHARD Follow-up Phone Call (f/u [address] [facility] 01/10/18 ) [place] [address] Social History Tobacco Use Types Packs/Day Years [...] encounter Miscellaneous Notes * Telephone Encounter - Regina Landis RN - 01/18/2018 8:36 AM CDT 01/18/18 8:38 Attempted to contact pt "Mail box is full " unable to leave a message I spoke to pt.- he is out walking and doing well " I'm back to my normal ." Pt states that he did have an episode of a fib on Monday but he is back in a normal rhythm now. 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 Patient denies chest pain, denies persistent nausea, vomiting or fullness, denies dysphagia, denies odynophagia, denies hematemesis/ melena, denies confusion, denies symptoms of stroke/TIA / CALVIN, denies fever, chills rigors, denies symptoms of sepsis or systemic infection Patient denies dysuria, denies urinary frequency. Patient denies Swelling, denies Bleeding, denies groin site pain Patient denies shortness of breath, denies weight gain, denies BLE swelling. Verified appointment date/time/location with the patient for 1 mo post LAAA follow up. Scheduled on 02/05/18. Pt states that he has a conflict with the follow up appointment date. I will have scheduling call him to change appt date and time. Patient will plan to call the office with any change in symptoms, questions or concerns. in this encounter Plan of Treatment Not on fileas of this encounter Visit Diagnoses Not on filein this encounter
--- OUTSIDE RECORDS SUMMARY | 2018-04-11 10:07 | XMS REPORT | Encounter Summary ---
Author Author [facility] Organization [facility] Address Unknown Phone Unavailable Care Team Providers Care Electrical Technology Instructor Name Role Phone Kailash Richardson MD, FACC Unavailable Andrew Lemus MD Unavailable Sylvia Lynn RN Unavailable Unavailable Adonis Madsen MD PCP Encounter Details Date Type Department Care Team Description 01/11/2018 Procedure Pass [facility] [address] [place] [address] Social History Tobacco Use Types [...] impairment: No 01/26/2016 as of this encounter Plan of Treatment Not on fileas of this encounter Visit Diagnoses Not on filein this encounter
--- OUTSIDE RECORDS SUMMARY | 2018-04-11 10:07 | XMS REPORT | Encounter Summary ---
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 mg capsule Take 5 mg by mouth at bedtime daily. in this encounter Miscellaneous Notes * Procedures (Immed Post or Bedside) - Jane Mcadams MD - 01/11/2018 12:10 PM CDT Immediate post procedure note: Procedure: AF cryoablation Operators: Abbe Complications: none Preop Diagnosis: Atrial fibrillation Post op Diagnosis: same Findings: RFV x2, LFV x2. TS puncture x1. All 4 pulmonary veins isolated without difficulty. Esophagus right behind LIPV. Used esosure to move esophagus to right in order to isolate LIPV Specimens removed: none Estimated blood loss: 15 cc in this encounter Plan of Treatment Not on fileas of this encounter Procedures Procedure Name Priority Date/Time Associated Diagnosis Comments TELEMETRY STRIPS-SCAN 01/17/2018 Results for this 9:54 [...] CDT procedure are in the results section. PROTIME [...] results section. in this encounter Results * TELEMETRY STRIPS-SCAN (01/17/2018 9:54 AM) Narrative Performed At Ordered by an unspecified provider. * ECG-SCAN (01/13/2018 10:30 PM) Narrative Performed At Ordered by an unspecified provider. * ECG-SCAN (01/13/2018 10:30 PM) Narrative Performed At Ordered by an unspecified provider. * MAGNESIUM (01/12/2018 4:00 AM) Magnesium 2.1 1.6 - 2.6 mg/dL MAIN LAB Performing Organization Address [facility] Phone Number [facility] [address] [place] [address] * CBC (01/12/2018 4:00 AM) White Blood Cells 13.7 (H) 4.5 - 11.0 K/UL [facility] RBC 3.73 (L) 4.4 - 5.5 M/UL [facility] Hemoglobin 12.2 (L) 13.5 - 16.5 GM/DL [facility] Hematocrit 35.5 (L) 40 - 50 % MAIN LAB MCV 95.0 80 - 100 FL [facility] MCH 32.7 26 - 34 PG [facility] MCHC 34.4 32.0 - 36.0 G/DL [facility] RDW 13.1 11 - 15 % [facility] Platelet Count 203 150 - 400 K/UL [facility] MPV 7.4 7 - 11 FL [facility] Specimen Blood Performing Organization Address [facility] Phone Number [facility] [address] [place] [address] * BASIC METABOLIC PANEL (01/12/2018 4:00 AM) Sodium 135 (L) 137 - 147 MMOL/L [facility] MAIN [facility] Potassium 3.9 3.5 - 5.1 MMOL/L [facility] Chloride 105 98 - 110 MMOL/L [facility] CO2 24 21 - 30 MMOL/L [facility] Anion Gap 6 3 - 12 [facility] Glucose 111 (H) 70 - 100 MG/DL [facility] Blood Urea Nitrogen 16 7 - 25 MG/DL [facility] Creatinine 1.00 0.4 - 1.24 MG/DL [facility] Calcium 8.5 8.5 - 10.6 MG/DL [facility] eGFR Non >60 >60 mL/min [...] for questions. Specimen Blood Performing Organization Address City/State/Zipcode Phone Number [facility] [address] [place] [address] * EP STUDY (01/11/2018 2:01 PM) Impressions [...] the left atrium was created utilizing the Chatous system using movement of the Achieve lasso [...] 800 msec, P wave duration 105 msec, AK interval 122 msec, QRSd 171 msec, QT [...] 1 minute 41 seconds Performing Organization Address City/[facility] Phone Number OTHER OUTSIDE LAB * POC ACTIVATED CLOTTING TIME (01/11/2018 12:18 PM) Activated Clotting Time 232 s MAIN LAB Performing Organization Address [facility] Phone Number MA[facility] LAB [address] [place] [address] * POC ACTIVATED CLOTTING TIME (01/11/2018 12:07 PM) Activated Clotting Time 253 s [facility]IN [facility] Performing Organization Address [facility] Phone Number MA[facility] LAB [address] [place] [address] * POC ACTIVATED CLOTTING TIME (01/11/2018 11:16 AM) Activated Clotting Time 358 s [facility] MAIN [facility] Performing Organization Address City/[facility]/Zipcode Phone Number [facility] [address] [place] [address] * POC ACTIVATED CLOTTING TIME (01/11/2018 10:44 AM) Activated Clotting Time 360 s [facility]IN [facility] Performing Organization Address City/[facility] Phone Number [facility] [address] [place] [address] * POC ACTIVATED CLOTTING TIME (01/11/2018 10:16 AM) Activated Clotting Time 365 s [facility]IN [facility] Performing Organization Address City/[facility] Phone Number [facility] [address] [place] [address] * POC ACTIVATED CLOTTING TIME (01/11/2018 9:56 AM) Activated Clotting Time 297 s [facility]IN [facility] Performing Organization Address City/[facility] Phone Number [facility] [address] [place] [address] * PROTIME INR (PT) (01/11/2018 7:30 AM) INR 1.2 0.8 - 1.2 MAIN LAB Specimen Blood Performing Organization Address [facility] Phone Number [facility] [address] [place] [address] * CBC (01/11/2018 6:23 AM) White Blood Cells 5.2 4.5 - 11.0 K/UL [facility] RBC 4.44 4.4 - 5.5 M/UL [facility] Hemoglobin 14.5 13.5 - 16.5 GM/DL [facility] Hematocrit 41.8 40 - 50 % [facility] MCV 94.2 80 - 100 FL [facility] MCH 32.7 26 - 34 PG MAIN LAB MCHC 34.7 32.0 - 36.0 G/DL MAIN LAB RDW 12.8 11 - 15 % [facility] Platelet Count 217 150 - 400 K/UL MAIN LAB MPV 7.2 7 - 11 FL [facility]IN [facility] Specimen Blood Performing Organization Address [facility] Phone Number [facility] [address] [place] [address] * MAGNESIUM (01/11/2018 6:23 AM) Magnesium 1.9 1.6 - 2.6 mg/dL MAIN LAB Specimen Blood Performing Organization Address City/[facility]/Zipcode Phone Number MAIN LAB [address] [place] [address] * BASIC METABOLIC PANEL (01/11/2018 6:23 AM) Sodium 137 137 - 147 MMOL/L MAIN LAB Potassium 4.1 3.5 - 5.1 MMOL/L [facility] Chloride 106 98 - 110 MMOL/L MAIN LAB CO2 21 21 - 30 MMOL/L [facility] Anion Gap 10 3 - 12 [facility] Glucose 149 (H) 70 - 100 MG/DL [facility] Blood Urea Nitrogen 17 7 - 25 MG/DL MAIN LAB Creatinine 1.00 0.4 - 1.24 MG/DL MAIN LAB Calcium 9.2 8.5 - 10.6 MG/DL MAIN LAB eGFR Non >60 >60 mL/min MAIN LAB Comment: The eGFR is not validated for use in drug dosing adjustments.Continue to use estimated creatinine clearance per dosing reference text.Please contact the Clinical Pharmacist for questions. eGFR >60 >60 mL/min MAIN LAB Comment: The eGFR is not validated for use in drug dosing adjustments.Continue to use estimated creatinine clearance per dosing reference text.Please contact the Clinical Pharmacist for questions. Specimen Blood Performing Organization Address City/[facility]/Zipcode Phone Number [facility] [address] [place] [address] * TYPE & CROSSMATCH (01/11/2018 6:23 AM) Units Ordered 2 MAIN LAB Crossmatch Expires 01/14/2018 MAIN LAB Record Check FOUND MAIN LAB ABO/RH(D) O POS MAIN LAB Antibody Screen NEG MAIN LAB Electronic Crossmatch YES MAIN LAB Specimen Blood Performing Organization Address City/[facility]/Zipcode Phone Number MAIN LAB [address] [place] [address] in this encounter Visit Diagnoses Diagnosis PAF (paroxysmal atrial fibrillation) (HCC) - Primary Atrial fibrillation Essential hypertension Unspecified essential hypertension LBBB (left bundle branch block) Other left bundle branch block Coronary artery disease involving [place] coronary artery of [place] heart, angina presence unspecified Hyperlipidemia, unspecified hyperlipidemia type Chronic anticoagulation, on apixaban Long-term (current) use of anticoagulants Admitting Diagnoses Diagnosis ATRIAL FIBRILLATION PAF (paroxysmal atrial fibrillation) (HCC) Atrial fibrillation Administered Medications Medication Order MAR Action Action Date Dose Rate Site acetaminophen (TYLENOL) tablet 325-650 mg 325-650 mg, Oral, EVERY 4 HOURS PRN, Starting Lyssa 01/11/18 at 1213, Until Mon01/12/18 at 1111, Pain non-opioid: may be used alone or in combination with opioid analgesia, TOTAL ACETAMINOPHEN DOSE NOT TO EXCEED 4GM DAILY aluminum/magnesium hydroxide (MAALOX) oral suspension 30 mL 30 mL, Oral, EVERY 4 HOURS PRN, Starting Lyssa 01/11/18 at 0603, Until Mon01/12/18 at 1111, Indigestion/Heartburn, Admission/Obs/Extended Recovery apixaban (ELIQUIS) tablet 5 mg Given 01/11/2018 5 mg 5 mg, Oral, TWICE DAILY, First dose on 20:48 CDT Lyssa 01/11/18 at 2100, Until Discontinued, May crush 5 mg or 2.5 mg tablets and suspend in 60 mL of D5W followed by immediate delivery through a nasogastric tube. No information regarding administration of suspension by mouth is available. Restart at least 4 hours after hemostasis. NOTE: This is a HIGH ALERT Medication. Given 01/12/2018 5 mg 08:54 CDT aspirin EC tablet 81 mg Given 01/11/2018 81 mg 81 mg, Oral, AT BEDTIME DAILY, First 20:48 CDT dose on Lyssa 01/11/18 at 2100, Until Discontinued, Admission/Obs/Extended Recovery atorvastatin (LIPITOR) tablet 20 mg Given 01/11/2018 20 mg 20 mg, Oral, AT BEDTIME DAILY, First 20:49 CDT dose on Lyssa 01/11/18 at 2100, Until Discontinued, Admission/Obs/Extended Recovery diazePAM (VALIUM) injection 5 mg 5 mg, Intravenous, NEEDED (BOX FEEDER FROM RX), 1 dose, Starting Ylssa 01/11/18 at 1312, Until Mon01/12/18 at 1111, Other..., Anxiety for Sheath Removal diphenhydrAMINE (BENADRYL) capsule 50 mg Given 01/11/2018 50 mg 50 mg, Oral, ONCE, 1 dose, [facility] 01/11/18 at 07:26 CDT 0715 docusate (COLACE) capsule 100 mg 100 mg, Oral, DAILY PRN, Starting Lyssa 01/11/18 at 0603, Until Mon01/12/18 at 1111, Constipation PO, Hold for loose stools. dofetilide (TIKOSYN) capsule 500 mcg Given 01/11/2018 500 mcg 500 mcg, Oral, EVERY 12 HOURS, First 20:49 CDT dose on Lyssa 01/11/18 at 2100, Until Discontinued, NOTE: This is a HIGH ALERT Medication. Given 01/12/2018 500 mcg 08:55 CDT finasteride (PROSCAR) tablet 5 mg Given 01/12/2018 5 mg 5 mg, Oral, DAILY, First dose on Lyssa 08:57 CDT 01/11/18 at 1700, Until Discontinued, NOTE: If or wanting to become , do not handle broken tablets without gloves due to risk of defects. HYDROcodone/acetaminophen (NORCO) 5/325 mg tablet 1 tablet 1 tablet, Oral, EVERY 4 HOURS PRN, Starting Lyssa 01/11/18 at 1212, Until Mon01/12/18 at 1111, Pain PO, TOTAL ACETAMINOPHEN DOSE NOT TO EXCEED 4GM DAILY NOTE: This is a HIGH ALERT Medication. lidocaine (XYLOCAINE) 2 % jelly Given - See 01/11/2018 (URO-JET) OR/Proc 06:14 CDT Topical, ONCE, 1 dose, Lyssa 01/11/18 at Flowsheet 0615, Apply for urinary catheter placement lidocaine PF 1% (10 mg/mL) injection 0.1-2 mL 0.1-2 mL, Injection, NEEDED, Starting Lyssa 01/11/18 at 0603, Until Mon01/12/18 at 1111, Other..., for peripheral IV insertion, Admission/Obs/Extended Recovery magnesium sulfate 1 g/D5W 100 mL IVPB Given - New 01/11/2018 1 g 100 mL/hr 1 g, Intravenous, 100 mL, Administer Bag 16:59 CDT over 1 Hours, ONCE, 1 dose, Lyssa 01/11/18 at 1700, Each 1gm delivers 8.1 mEq Magnesium. Give prior to resuming Tikosyn at 2100 ondansetron (ZOFRAN) injection 4 mg 4 mg, Intravenous, EVERY 6 HOURS PRN, Starting Lyssa 01/11/18 at 1212, Until Mon01/12/18 at 1111, Nausea/Vomiting Injectable pantoprazole DR (PROTONIX) tablet 40 mg Given 01/11/2018 40 mg 40 mg, Oral, TWICE DAILY, First dose on 20:48 CDT [facility] 01/11/18 at 2100, Until Discontinued, Do not crush or chew tablet. Given 01/12/2018 40 mg 08:55 CDT sodium chloride 0.9 % infusion Given - New 01/11/2018 20 mL/hr 1,000 mL, Intravenous, at 20 mL/hr, Bag 06:26 CDT CONTINUOUS, Starting [facility] 01/11/18 at 0615, Until Mon01/12/18 at 1111, -EF >35%: NS @ 75 mL/hr to be started the morning of the procedure (not to exceed 750 mL) -EF <35%: NS @ 20 mL/hr to be started the morning of procedure (not to exceed 500 mL) sucralfate (CARAFATE) tablet 1 g Given 01/11/2018 1 g 1 g, Oral, TWICE DAILY BEFORE MEALS, 16:58 CDT First dose on [facility] 01/11/18 at 1715, Until Discontinued, Can be made into a slurry by placing 1 Sucralfate tablet in 30 mL water and allow to stand for 5 minutes. Continue for 4 weeks after ablation. Given 01/12/2018 1 g 08:55 CDT temazepam (RESTORIL) capsule 15 mg Given 01/11/2018 15 mg 15 mg, Oral, AT BEDTIME PRN, Starting 23:01 CDT [facility] 01/11/18 at 0603, Until Mon01/12/18 at 1111, Insomnia, Admission/Obs/Extended Recovery terazosin (HYTRIN) capsule 5 mg Given 01/11/2018 5 mg 5 mg, Oral, AT BEDTIME DAILY, First dose 20:49 CDT on [facility] 01/11/18 at 2100, Until Discontinued, Admission/Obs/Extended Recovery in this encounter
--- OUTSIDE RECORDS SUMMARY | 2018-04-11 10:08 | XMS REPORT | Encounter Summary ---
Author Author [facility] Organization [facility] Address Unknown Phone Unavailable Care Team Providers Care Water Superintendent Name Role Phone Kailash Richardson MD, [facility] Unavailable Andrew Lemus MD Unavailable Sylvia Lynn RN Unavailable Unavailable Adonis Madsen MD PCP Reason for Referral * Test Status Reason Specialty Diagnoses / Referred By Referred To Procedures Contact Contact No Auth Needed Cardiology Diagnoses Mcadams, Jane Cvm Bhg Echopv Atrial C, [facility] fibrillation, [id number] ([facility]) [place] [address] [place], [place] [address] [employer] [id number] Phone: TRANSESOPHAGEAL ECHOCARDIOGRAM [phone] [place] [facility] Fax: TRANSESOPHAG R-T [phone] 2D W/PRB IMG ACQUISJ I&R * Test Status Reason Specialty Diagnoses / Referred By Referred To Procedures Contact Contact No Auth Needed Cardiology Diagnoses Mcadams, Dent Cvm Bhg Echopv Atrial C, MD [facility] fibrillation, [id number] (HCC) [place] [address] [place], [place] [address] [employer] [id number] Phone: TRANSESOPHAGEAL ECHOCARDIOGRAM [phone] [place] [facility] Fax: JARETH R-T [phone] 2D W/PRB IMG ACQUISJ I&R Reason for Visit * Auth/Cert (Routine) Status Reason Specialty Diagnoses / Referred By Referred To Procedures Contact Contact Encounter Details Date Type Department Care Team Description 01/11/2018 [facility] Cardiovascular Medicine Jane Mcadams MD No Show Encounter [place] [id number] [address] [place] [address] [place] [address] [phone] Social History Tobacco Use Types Packs/Day Years Used Date Never Smoker Smokeless Tobacco: Never Used Alcohol Use Drinks/Week oz/Week Comments Yes 9 Glasses of 45.0 wine and beer wine Sex Assigned at Date Recorded Not on file as of this encounter Last Filed Vital Signs Vital Sign Reading Time Taken Blood Pressure 104/76 01/11/2018 9:23 AM CDT Pulse - - Temperature - - Respiratory Rate - - Oxygen Saturation - - Inhaled Oxygen - - Concentration Weight 88.5 kg (195 lb) 01/11/2018 9:23 AM CDT Height 180.3 cm (5' 11") 01/11/2018 9:23 AM CDT Body Mass Index 27.2 01/11/2018 9:23 AM CDT in this encounter Functional Status Functional Status Response Date of Assessment Does the patient have a hearing impairment: No 01/26/2016 as of this encounter Medications at Time of Discharge Medication Sig. Disp. Refills Start Date End Date apixaban (ELIQUIS) 5 mg Take 1 Tab by mouth twice 08/05/2015 tab tabletIndications: daily. 08/05/15 Take 6 Essential hypertension, hours post hemostasis LBBB (left bundle branch after cardiac cath. block), Coronary artery disease involving [place] coronary artery of [place] heart, angina presence unspecified, Hyperlipidemia, unspecified hyperlipidemia type, PAF (paroxysmal atrial fibrillation) (HCC), Chronic anticoagulation atorvastatin (LIPITOR) 20 Take 20 mg by mouth at mg PO tablet bedtime daily. Cod Liver Oil cap Take 2 Caps by mouth daily. dofetilide (TIKOSYN) 500 Take one capsule by mouth 120 capsule 3 01/12 mcg capsuleIndications: every 12 hours. PAF (paroxysmal atrial fibrillation) (HCC) finasteride (PROSCAR) 5 Take 5 mg by mouth Daily. mg tablet pantoprazole DR Take 1 tablet twice daily 30 tablet 0 01/12/2018 (PROTONIX) 40 mg for 6 weeks after your tabletIndications: PAF ablation. (paroxysmal atrial fibrillation) ([facility]) sucralfate (CARAFATE) 1 Take one tablet by mouth 60 tablet 0 2017 gram tabletIndications: twice daily before meals. PAF (paroxysmal atrial Take on an empty stomach. fibrillation) ([facility]) terazosin (HYTRIN) 5 mg Take 5 mg by mouth at capsule bedtime daily. aspirin EC 81 mg Take 1 Tab by mouth 90 Tab 3 08/06/2015 03/08/2018 tabletIndications: daily. Essential hypertension, LBBB (left bundle branch block), Coronary artery disease involving [place] coronary artery of [place] heart, angina presence unspecified, Hyperlipidemia, unspecified hyperlipidemia type, PAF (paroxysmal atrial fibrillation) ([facility]), Chronic anticoagulation dofetilide (TIKOSYN) 500 Take 1 capsule by mouth 180 capsule 3 201601/12/2018 mcg capsule every [address] Take 1 tablet by mouth 70 tablet 0 01/04/20182017 (PROTONIX) 40 mg tablet twice daily for 35 days. prednisone (DELTASONE) 20 Please take 60mg in the 6 tablet 0 201701/12/2018 mg tablet evening on 01/10/2018 and in the morning on 01/11/2018 as of this encounter Plan of Treatment Not on fileas of this encounter Procedures Procedure Name Priority Date/Time Associated Diagnosis Comments KAMAR W/O CONTRAST Routine 01/11/2018 Atrial fibrillation, Results for this 9:21 AM CDT unspecified type ([facility]) procedure are in the results section. in this encounter Results * TRANSESOPHAGEAL ECHOCARDIOGRAM (01/11/2018 9:21 AM) BSA 2.1 m2 OTHER OUTSIDE LAB Referring Provider Adonis Madsen OTHER OUTSIDE LAB CV ECHO PV HOME HEALTH OCCUPATIONAL THERAPIST EP staff OTHER OUTSIDE LAB Cardiology Ultrasound Siemens [id number] OTHER OUTSIDE LAB Machine ECHO EF 65 [...] 6. No pericardial effusion. Performing Organization Address City/State/Zipcode Phone Number OTHER OUTSIDE LAB in this encounter Visit Diagnoses Diagnosis Atrial fibrillation, unspecified type (HCC)
--- OUTSIDE RECORDS SUMMARY | 2018-04-11 10:08 | XMS REPORT | Encounter Summary ---
Author [facility] Address Unknown Phone Unavailable Care Team Providers Care Baker Chef Name Role Phone Kailash Richardson MD, FACC Unavailable Andrew Lemus MD Unavailable Sylvia Lynn RN Unavailable Unavailable Adonis Madsen MD PCP Reason for Visit * Auth/Cert (Routine) Status Reason Specialty Diagnoses / Referred By Referred To Procedures Contact Contact Encounter Details Date Type Department Care Team Description 01/11/2018 Surgery HC2 EP LAB Jane Mcadams MD INTRACARDIAC CATHETER [address] [place] [address] [address] COMPREHENSIVE [phone] [place] [address] ELECTROPHYSIOLOGIC [phone] EVALUATION - ATRIAL FIBRILLATION - CRYO - TRANSEPTAL Social History Tobacco Use Types Packs/Day Years [...] branch block) 08/11/2008 PAF (paroxysmal atrial fibrillation) ([facility]) 08/05/2015 Personal history of kidney stones [...] even if the signs go away, call IMMEDIATELY. Check the time so you will [...] HOURS (8:00 AM - 4:30 PM): Call [phone] and asked to be transferred to your discharge attending physician. - AFTER BUSINESS HOURS (4:30 PM - 8:00 AM, on weekends, or holidays): Call [phone] and ask the strap folding machine operator to page the on-call doctor for the discharge attending physician. Discharging attending physician: JANE MCADAMS [[id number]] Cardiac Diet Limiting unhealthy fats and cholesterol [...] may shower after discharge. [facility] is a gathering place for individuals, families, and friends living with serious or chronic physical illness. They offer education and support programs that help you live your life to the fullest. Unless otherwise noted, programs are offered at NO CHARGE. However, REGISTRATION IS REQUIRED 48 hours in advance. To arrange for a tour, register for a class, or ask a questions please call [phone]. You can also visit [email or web address] for more information. Current Discharge Medication List START taking these medications Details sucralfate (CARAFATE) 1 gram tablet Take one tablet by mouth twice daily before meals. Take on an empty stomach. Qty: 60 tablet, Refills: 0 PRESCRIPTION TYPE: Normal Associated Diagnoses: PAF (paroxysmal atrial fibrillation) ([facility]) CONTINUE these medications which have been CHANGED or REFILLED Details dofetilide (TIKOSYN) 500 mcg capsule Take one capsule by mouth every 12 hours. Qty: 120 capsule, Refills: 3 PRESCRIPTION TYPE: Normal Comments: OK for generic Associated Diagnoses: PAF (paroxysmal atrial fibrillation) ([facility]) pantoprazole DR (PROTONIX) 40 mg tablet Take 1 tablet twice daily for 6 weeks after your ablation. Qty: 30 tablet, Refills: 0 PRESCRIPTION TYPE: Print Associated Diagnoses: PAF (paroxysmal atrial fibrillation) ([facility]) CONTINUE these medications which have NOT CHANGED Details apixaban (ELIQUIS) 5 mg tab tablet Take 1 Tab by mouth twice daily. 08/05/15 Take 6 hours post hemostasis after cardiac cath. PRESCRIPTION TYPE: No Print Associated Diagnoses: Essential hypertension; LBBB (left bundle branch block); Coronary artery disease involving inupiat coronary artery of inupiat heart, angina presence unspecified; Hyperlipidemia, unspecified hyperlipidemia type; PAF (paroxysmal atrial fibrillation) ([facility]); Chronic anticoagulation aspirin EC 81 mg tablet Take 1 Tab by mouth daily. Qty: 90 Tab, Refills: 3 PRESCRIPTION TYPE: OTC Associated Diagnoses: Essential hypertension; LBBB (left bundle branch block); Coronary artery disease involving inupiat coronary artery of inupiat heart, angina presence unspecified; Hyperlipidemia, unspecified hyperlipidemia [...] CDT Return Patient with Jane Mcadams MD [facility] ([facility]) [facility] [facility] [address] Pending items needing follow up: none Signed: Aminata Joiner PA-C 01/11/2018 cc: Primary Care Physician: Adonis Madsen Verified Referring physicians: Adonis Madsen MD in this encounter Discharge Instructions * Patient Instructions - Lilia Jefferson RN - 01/12/2018 8:16 AM CDT Manual Sheath Removal From A Large Vein Or Artery-[facility] When you go home: You may shower [...] to speak with someone? During Business Hours: [facility] Cardiology Office at the [facility]: (Monday-Monday) [employer]: [phone] (Monday-Monday) [place]: [phone] (Monday-Monday) [place]: [phone] (Monday and ) [place]: [phone] (Monday-Monday) [place]: [phone] (Monday-Monday) [place]: [phone] (Monday-) [facility]: [phone] (Monday, Monday and Monday) [place]: [phone] (Monday, Monday and Monday) [facility]): [phone] (Monday, Monday and Monday) Nights and Weekends [facility] Cardiology Office at the [facility]: [phone] This education is meant to serve as a resource to you and your family. It is not meant to be all inclusive. The members of the [facility] at [facility]iology, , will be glad to answer [...] cardiac cath. block), Coronary artery disease involving inupiat coronary artery of inupiat heart, angina presence unspecified, Hyperlipidemia, unspecified hyperlipidemia type, PAF (paroxysmal atrial fibrillation) ([facility]), Chronic anticoagulation atorvastatin (LIPITOR) 20 Take 20 mg by mouth at mg PO tablet bedtime daily. Cod Liver Oil cap Take 2 Caps by mouth daily. dofetilide (TIKOSYN) 500 Take one capsule by mouth 120 capsule 3 01/12 mcg capsuleIndications: every 12 hours. PAF (paroxysmal atrial fibrillation) ([facility]) finasteride (PROSCAR) 5 Take 5 mg by mouth Daily. mg tablet pantoprazole DR Take 1 tablet twice daily 30 tablet 0 01/12/2018 (PROTONIX) 40 mg for 6 weeks after your tabletIndications: PAF ablation. (paroxysmal atrial fibrillation) ([facility]) sucralfate (CARAFATE) 1 Take one tablet by mouth 60 tablet 0 2017 gram tabletIndications: twice daily before meals. PAF (paroxysmal atrial Take on an empty stomach. fibrillation) ([facility]) terazosin (HYTRIN) 5 mg Take 5 mg by mouth at capsule bedtime daily. aspirin EC 81 mg Take 1 Tab by mouth 90 Tab 3 08/06/2015 03/08/2018 tabletIndications: daily. Essential hypertension, LBBB (left bundle branch block), Coronary artery disease involving inupiat coronary artery of inupiat heart, angina presence unspecified, Hyperlipidemia, unspecified hyperlipidemia type, PAF (paroxysmal atrial fibrillation) ([facility]), Chronic anticoagulation as of this encounter Progress Notes * Lilia Jefferson, RN - 01/12/2018 8:29 AM CDT Pt [...] magnesium 1 gram ordered. Aminata Joiner, PAC ([id number]) * Maribell Ford RN - 01/11/2018 6:00 [...] per minute 01/27/2016 PAF (paroxysmal atrial fibrillation) ([facility]) 08/05/2015 01/26/16 Elective admission for Tikosyn [...] 08/11/2008 08/04/08- Persantine myoview stress test at [facility]: Strong suspicion of mild reversible ischemia [...] Coronary Intervention performed by Kailash Richardson MD, [facility] at [facility]ATHER[facility] 08/05/2015 no intervention required [...] Diagnoses Name Primary? PAF (paroxysmal atrial fibrillation) ([facility]) Yes LBBB (left bundle branch block) Assessment and Plan PAF (paroxysmal atrial fibrillation) ([facility]) His last episode of atrial fibrillation [...] 2.6 mg/dL MAIN LAB Performing Organization Address [facility] Hospital[facility] Phone Number [facility] [address] [place] [address] * CBC (01/12/2018 4:00 AM) White Blood Cells 13.7 (H) 4.5 - 11.0 K/UL [facility] RBC 3.73 (L) 4.4 - 5.5 M/UL [facility] Hemoglobin 12.2 (L) 13.5 - 16.5 GM/DL [facility] Hematocrit 35.5 (L) 40 - 50 % MAIN LAB MCV 95.0 80 - 100 FL MAIN LAB MCH 32.7 26 - 34 PG [facility] MCHC 34.4 32.0 - 36.0 G/DL [facility] RDW 13.1 11 - 15 % MAIN LAB Platelet Count 203 150 - 400 K/UL [facility] MPV 7.4 7 - 11 FL [facility] Specimen Blood Performing Organization Address [facility] Hospitalcopr Phone Number [facility] [address] [place] [address] * BASIC METABOLIC PANEL (01/12/2018 4:00 AM) [...] Blood Performing Organization Address City/State/Zipcode Phone Number [facility] [address] [place] [address] * EP STUDY (01/11/2018 2:01 PM) Impressions [...] mm Cryoballoon catheter were advanced via the Hello Chairtronic sheath into the left atrium after transseptal [...] the left atrium was created utilizing the [employer] system using movement of the Achieve lasso [...] 800 msec, P wave duration 105 msec, MO interval 122 msec, QRSd 171 msec, QT [...] minute 41 seconds Performing Organization Address City/[facility] Hospitalcode Phone Number OTHER OUTSIDE LAB * POC ACTIVATED CLOTTING TIME (01/11/2018 12:18 PM) Activated Clotting Time 232 s MAIN LAB Performing Organization Address [facility]/[place] Phone Number MAIN LAB [address] [place] [address] * POC ACTIVATED CLOTTING TIME (01/11/2018 12:07 PM) Activated Clotting Time 253 s MAIN LAB Performing Organization Address [facility]/[place] Phone Number MAIN LAB [address] [place] [address] * POC ACTIVATED CLOTTING TIME (01/11/2018 11:16 AM) Activated Clotting Time 358 s [facility] MAIN LAB Performing Organization Address City/[facility]/Zipcode Phone Number [facility]IN [facility] [address] [place] [address] * POC ACTIVATED CLOTTING TIME (01/11/2018 10:44 AM) Activated Clotting Time 360 s [facility] MAIN LAB Performing Organization Address City/[facility] Hospitalcode Phone Number [facility] [address] [place] [address] * POC ACTIVATED CLOTTING TIME (01/11/2018 10:16 AM) Activated Clotting Time 365 s [facility] MAIN LAB Performing Organization Address City/[facility] Hospitalcode Phone Number [facility] [address] [place] [address] * POC ACTIVATED CLOTTING TIME (01/11/2018 9:56 AM) Activated Clotting Time 297 s [facility] MAIN LAB Performing Organization Address City/[facility] Phone Number [facility] [address] [place] [address] * PROTIME INR (PT) (01/11/2018 7:30 AM) INR 1.2 0.8 - 1.2 MAIN LAB Specimen Blood Performing Organization Address [facility] Phone Number [facility] [address] [place] [address] * CBC (01/11/2018 6:23 AM) White Blood [...] LAB RDW 12.8 11 - 15 % MAIN LAB Platelet Count 217 150 - 400 K/UL [facility] MAIN LAB MPV 7.2 7 - 11 FL MAIN LAB Specimen Blood Performing Organization Address City/[facility]/Zipcode Phone Number MAIN LAB [address] [place] [address] * MAGNESIUM (01/11/2018 6:23 AM) Magnesium 1.9 1.6 - 2.6 mg/dL MAIN LAB Specimen Blood Performing Organization Address City/[facility]/Zipcode Phone Number [facility] [address] [place] [address] * BASIC METABOLIC PANEL (01/11/2018 6:23 AM) Sodium 137 137 - 147 MMOL/L MAIN LAB Potassium 4.1 3.5 - 5.1 MMOL/L MAIN LAB Chloride 106 98 - 110 MMOL/L MAIN LAB CO2 21 21 - 30 MMOL/L MAIN LAB Anion Gap 10 3 - 12 MAIN LAB Glucose 149 (H) 70 - 100 MG/DL MAIN LAB Blood Urea Nitrogen 17 7 [...] questions. Specimen Blood Performing Organization Address City/[facility]/Zipcode Phone Number [facility] [address] [place] [address] * TYPE & CROSSMATCH (01/11/2018 6:23 AM) Units Ordered 2 MAIN LAB Crossmatch Expires 01/14/2018 MAIN LAB Record Check FOUND MAIN LAB ABO/RH(D) O POS MAIN LAB Antibody Screen NEG MAIN LAB Electronic Crossmatch YES MAIN LAB Specimen Blood Performing Organization Address City/[facility]/Zipcode Phone Number [facility] [address] [place] [address] in this encounter Visit Diagnoses Not on filein this encounter Admitting Diagnoses Diagnosis ATRIAL FIBRILLATION PAF (paroxysmal [...] injection 5 mg 5 mg, Intravenous, NEEDED (AUTO CLAIMS ADJUSTER FROM RX), 1 dose, Starting [facility] 01/11/18 at 1312, Until Mon01/12/18 at 1111, Other..., Anxiety for Sheath Removal diphenhydrAMINE (BENADRYL) capsule 50 mg Given 01/11/2018 50 mg 50 mg, Oral, ONCE, 1 dose, [facility] 01/11/18 at 07:26 CDT 0715 docusate (COLACE) [...] CDT [place] 01/11/18 at 2100, Until Discontinued, Do not crush or chew tablet. Given 01/12/2018 40 mg 08:55 CDT sodium chloride 0.9 % infusion Given - New 01/11/2018 20 mL/hr 1,000 mL, Intravenous, at 20 mL/hr, Bag 06:26 CDT CONTINUOUS, Starting [place] 01/11/18 at 0615, Until Mon01/12/18 at 1111, [...] BEFORE MEALS, 16:58 CDT First dose on [place] 01/11/18 at 1715, Until Discontinued, Can be made into a slurry by placing 1 Sucralfate tablet in 30 mL water and allow to stand for 5 minutes. Continue for 4 weeks after ablation. Given 01/12/2018 1 g 08:55 CDT temazepam (RESTORIL) capsule 15 mg Given 01/11/2018 15 mg 15 mg, Oral, AT BEDTIME PRN, Starting 23:01 CDT [facility] 01/11/18 at 0603, Until Mon01/12/18 at 1111, Insomnia, Admission/Obs/Extended Recovery terazosin (HYTRIN) capsule 5 mg Given 01/11/2018 5 mg 5 mg, Oral, AT BEDTIME DAILY, First dose 20:49 CDT on [place] 01/11/18 at 2100, Until Discontinued, Admission/Obs/Extended Recovery in this encounter
--- OUTSIDE RECORDS SUMMARY | 2018-04-11 10:08 | XMS REPORT | Encounter Summary ---
Author Author [facility] Organization [facility] Address Unknown Phone Unavailable Care Team Providers Care Creative Arts Therapist Name Role Phone Kailash Richardson MD, [facility] Unavailable Andrew Lemus MD Unavailable Sylvia Lynn RN Unavailable Unavailable Adonis Madsen MD PCP Reason for Visit * Auth/Cert (Routine) Status Reason Specialty Diagnoses / Referred By Referred To Procedures Contact Contact Encounter Details Date Type Department Care Team Description 01/11/2018 Anesthesia HC2 EP LAB Anaid Ivory SRNA Event [address] [facility] [place] [address] Anesthesia Record Procedure Name Responsible Anesthesia Start Time Anesthesia Stop Time Anesthesiologist INTRACARDIAC CATHETER Alfie Will MD 01/11/18 0745 01/11/18 1154 ABLATION WITH COMPREHENSIVE ELECTROPHYSIOLOGIC EVALUATION - ATRIAL FIBRILLATION - CRYO - TRANSEPTAL (N/A ) Date Time Event Comment 653 AN Equip Check 2018 0730 Out of Pre Procedure 0730 In Room 0738 An Start Data 0745 Anes Start 0752 An Induction The patient was reevaluated immediately before moderate or deep sedation use and before anesthesia induction. 0755 IV Placed 0805 An Intubation 0805 Quick Note Severe overbite complicating intubation. Mask ventilation until glidescope [in use] available. 0810 Anesthesia Ready 0832 an alex now Start of KAMAR 0838 an alex now KAMAR in place at this time 0856 an alex now KAMAR complete 0859 an alex now Esophageal temp probe placed at this time 0916 an alex now Procedure start 1122 an alex now ISUPREL ON AT THIS TIME 1129 an alex now Isuprel off 1142 an alex now Procedure complete 1149 An Extubation OG SUCTIONED AND REMOVED AFTER WIRE REMOVED BY RN. Oral temp probe removed. PT SV, TV > 400, O2 SAT >90%, VSS, SUCTIONED, ORAL AIRWAY IN PLACE, FOLLOWS COMMANDS, AND ETT REMOVED. PT MAINTAINS O2 SAT, SV AND VSS. DROWSY, FOLLOWS COMMANDS, TO RECOVERY ON MONITORS AND 10L 100% FIO2 VIA FACE MASK, MAINTAINS SV, VSS AND REPORT GIVEN TO RN. 1151 an stop data 1152 an alex now Out of room to recovery on monitors 1154 Handoff to RN I completed my SBAR handoff to the receiving nurse. 1154 An Stop Meds Name Total fentaNYL PF (SUBLIMAZE) injection 100 mcg propofol (DIPRIVAN) 200 mg/ 20 mL 400 mg injection (VIAL) succinylcholine (ANECTINE) injection 200 mg (VIAL) ondansetron (ZOFRAN) injection 4 mg dexamethasone (DECADRON) 4 mg/mL 10 mg injection phenylephrine (DAVID-SYNEPHRINE) 0.1 mg/mL 100 mcg injection (SYRINGE) dextran 70/hypromellose (GENTEAL TEARS; 2 drop BION TEARS) ophthalmic solution phenylephrine (DAVID-SYNEPHRINE) 10 mg in 3.46 mg sodium chloride 0.9% (NS) 250 mL IV drip (std conc) phenylephrine (DAVID-SYNEPHRINE) 20 mg in 8.91 mg sodium chloride 0.9% (NS) 250 mL IV drip (dbl conc) sodium chloride 0.9 % infusion 800 mL * Name O2 N2O Inspired N2O Sevoflurane Inspired Sevoflurane * No blood administrations on file. 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 Will DL x 3 perez poor view, DL x 4 glidescope 4 cords closed unable to pass ett, DL x 5 after additional medication administered glidescope 4 grade [address] ett easily.); Auscultation, ETCO2 Detector; 23 centimeters; atraumatic, dentition remains intact. ; 01/11/18; 1151 in this encounter Social History Tobacco Use Types Packs/Day Years Used Date Never Smoker Smokeless Tobacco: Never Used Alcohol Use Drinks/Week oz/Week Comments Yes 9 Glasses of 45.0 wine and beer wine Sex Assigned at Date Recorded Not on file as of this encounter Functional Status Functional Status Response Date of Assessment Does the patient have a hearing impairment: No 01/26/2016 as of this encounter OR Notes * Anesthesia Postprocedure Evaluation - Levy Lozano MD - 01/11/2018 12:52 PM CDT Post-Anesthesia Evaluation Name: Baltazar Parker : 1940 Age: 77 y.o. Sex: male Procedure Date: 01/11/2018 Procedure: Procedure(s) with comments: INTRACARDIAC CATHETER ABLATION WITH COMPREHENSIVE ELECTROPHYSIOLOGIC EVALUATION - ATRIAL FIBRILLATION - CRYO - TRANSEPTAL - GENERAL ANESTHESIA, PRECISION, PRE- ABLATION KAMAR NEEDED, RETRIEVE CTA, ADORNO, CONTRAST ANTICIPATED COMPREHENSIVE ELECTROPHYSIOLOGIC EVALUATION WITH CORONARY SINUS/ LEFT ATRIUM Surgeon: Surgeon(s): Jane Mcadams MD Post-Anesthesia Vitals BP: 124/59 (01/11 1250) Temp: 36.8 C (98.2 F) (01/11 1205) Pulse: 63 (01/11 1250) Respirations: 10 PER MINUTE (01/11 1250) SpO2: 93 % (01/11 1250) O2 Delivery: None (Room Air) (01/11 1230) SpO2 Pulse: 63 (01/11 1250) Post Anesthesia Evaluation Note Evaluation location: Pre/Post Patient participation: recovered; patient participated in evaluation Level of consciousness: alert Pain score: 0 Pain management: adequate Hydration: normovolemia Temperature: 36.0C - 38.4C Airway patency: adequate Perioperative Events Perioperative events: no Post-op nausea and vomiting: no PONV Postoperative Status Cardiovascular status: hemodynamically stable Respiratory status: spontaneous ventilation Follow-up needed: none Perioperative Events Perioperative Event: No Emergency Case Activation: No Associated attestation - Vinayak English DO - 01/11/2018 12:54 PM CDT Formatting of this note may be different from the original. ATTESTATION Post-Anesthesia Evaluation Attestation: I reviewed and agree the indicated post- anesthesia care was provided. Staff name: Vinayak English DO Date: 01/11/2018 * Anesthesia Preprocedure Evaluation - Alfie Will MD - 01/03/2018 3:33 PM CDT Formatting of this note may be different from the original. Anesthesia Pre-Procedure Evaluation Name: Baltazar Parker : 1940 Age: 77 y.o. Sex: male Procedure Date: 01/11/2018 Procedure: Procedure(s) with comments: INTRACARDIAC CATHETER ABLATION WITH COMPREHENSIVE ELECTROPHYSIOLOGIC EVALUATION - ATRIAL FIBRILLATION - CRYO - TRANSEPTAL - GENERAL ANESTHESIA, PRECISION, PRE- ABLATION KAMAR NEEDED, RETRIEVE CTA, ADORNO, CONTRAST ANTICIPATED COMPREHENSIVE ELECTROPHYSIOLOGIC EVALUATION WITH CORONARY SINUS/ LEFT ATRIUM Physical Assessment Vital Signs (last filed in past 24 hours): BP: 104/59 (01/11 618) Temp: 36.6 C (97.9 F) (01/11 618) Pulse: 67 (01/11 635) Respirations: 13 PER MINUTE (01/11 635) SpO2: 93 % (01/11 635) Height: 180.3 cm (71") (01/11 618) Weight: 88.6 kg (195 lb 5.2 oz) (01/11 618) Patient History Allergies Allergen Reactions Iodine RASH Current Medications Medication Directions apixaban (ELIQUIS) 5 mg tab tablet Take 1 Tab by mouth twice daily. 08/05/15 Take 6 hours post hemostasis after cardiac cath. aspirin EC 81 mg tablet Take 1 Tab by mouth daily. Patient taking differently: Take 81 mg by mouth at bedtime daily. atorvastatin (LIPITOR) 20 mg PO tablet Take [...] Please take 60mg in the evening on 2017 and in the morning on 01/11/2018 terazosin (HYTRIN) 5 mg capsule Take 5 mg by mouth at bedtime daily. 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 wood, can climb 2 flights stairs without HUTTON/CP) Hypertension, well controlled Coronary artery disease Dysrhythmias (taking eliquis); atrial fibrillation Hyperlipidemia (taking statin) Taking ASA GI/Hepatic/Renal - negative Neuro/Psych - negative Musculoskeletal - negative Endocrine/Other - negative Physical Exam Airway Findings Mallampati: II TM distance: >3 FB Neck ROM: full Mouth opening: good Dental Findings: Comments: Lower partial Cardiovascular Findings: Rhythm: regular Rate: normal No murmur, no carotid bruit, no peripheral edema Pulmonary Findings: Breath sounds clear to auscultation. Abdominal Findings: Not obese Neurological Findings: Normal mental status Diagnostic Tests Hematology: Lab Results Component Value Date HGB 14.5 01/11/2018 HCT 41.8 01/11/2018 PLTCT 217 01/11/2018 WBC 5.2 01/11/2018 NEUT 88 04/12/2010 ANC 8.28 04/12/2010 ALC 0.53 04/12/2010 HÉCTOR 6 04/12/2010 AMC 0.54 04/12/2010 EOSA 0 04/12/2010 ABC 0.03 04/12/2010 MCV 94.2 01/11/2018 MCH 32.7 01/11/2018 MCHC 34.7 01/11/2018 MPV 7.2 01/11/2018 RDW 12.8 01/11/2018 General Chemistry: Lab Results Component Value Date NA 137 01/11/2018 K 4.1 01/11/2018 CL 106 01/11/2018 CO2 21 01/11/2018 GAP 10 01/11/2018 BUN 17 01/11/2018 CR 1.00 01/11/2018 GLU 149 01/11/2018 CA 9.2 01/11/2018 ALBUMIN 4.4 01/26/2016 MG 1.9 01/11/2018 TOTBILI 0.7 01/26/2016 PO4 4.2 04/12/2010 Coagulation: Lab Results Component Value Date PTT 26.1 04/12/2010 INR 1.1 04/12/2010 Anesthesia Plan ASA score: 4 Plan: general Informed Consent Use of blood products discussed with patient labs: cbc, bmp, mg, t&s in this encounter Miscellaneous Notes * Addendum Note - Yadira Harrington CRNA - 01/11/2018 2:39 PM CDT Formatting of this note may be different from the original. Addendum created 01/11/18 1439 by Yadira Harrington CRNA Anesthesia Intra Meds edited in this encounter Plan of Treatment Not on fileas of this encounter Visit Diagnoses Not on filein this encounter Administered Medications Medication Order MAR Action Action Date Dose Rate Site dexamethasone (DECADRON) injection Given 01/11/2018 10 mg Intravenous, INTRA-PROCEDURE MED, 08:41 CDT Starting Lyssa 01/11/18 at 0841, Until Lyssa 01/11/18 at 1206, Nausea/Vomiting Injectable, Anesthesia Intra-op dextran 70/hypromellose (GENTEAL TEARS; Given 01/11/2018 2 drops BION TEARS) ophthalmic solution 08:00 CDT INTRA-PROCEDURE MED, Starting Lyssa 01/11/18 at 0800, Until Lyssa 01/11/18 at 1206, Dry Eyes, Anesthesia Intra-op fentaNYL citrate PF (SUBLIMAZE) Given 01/11/2018 100 mcg injection 07:52 CDT INTRA-PROCEDURE MED, Starting Lyssa 01/11/18 at 0752, Until Lyssa 01/11/18 at 1206, Pain Injectable, Anesthesia Intra-op ondansetron (ZOFRAN) injection Given 01/11/2018 4 mg Intravenous, INTRA-PROCEDURE MED, 11:35 CDT Starting Lyssa 01/11/18 at 1135, Until Lyssa 01/11/18 at 1206, Nausea/Vomiting Injectable, Anesthesia Intra-op phenylephrine (DAVID-SYNEPHRINE) 10 mg in Dose/Rate 01/11/2018 0.8 106.3 mL/hr sodium chloride 0.9% (NS) 250 mL IV drip Change 08:41 CDT mcg/kg/min (std conc) 250 mL, INTRA-PROCEDURE MED(CONT), Starting Lyssa 01/11/18 at 0814, Until Lyssa 01/11/18 at 1206, Anesthesia Intra-op Dose/Rate Change 01/11/2018 1 mcg/kg/min 132.9 mL/hr 08:46 CDT Dose/Rate Change 01/11/2018 0.7 93 mL/hr 09:01 CDT mcg/kg/min phenylephrine (DAVID-SYNEPHRINE) 20 mg in Dose/Rate 01/11/2018 0.6 39.9 mL /hr sodium chloride 0.9% (NS) 250 mL IV drip Change 11:22 CDT mcg/kg/min (dbl conc) 250 mL, INTRA-PROCEDURE MED(CONT), Starting Lyssa 01/11/18 at 0905, Until Lyssa 01/11/18 at 1206, Anesthesia Intra-op Dose/Rate Change 01/11/2018 0.8 53.2 mL/hr 11:25 CDT mcg/kg/min Dose/Rate Change 01/11/2018 0.4 26.6 mL/hr 11:37 CDT mcg/kg/min phenylephrine in NS injection syringe Given 01/11/2018 100 mcg Intravenous, INTRA-PROCEDURE MED, 08:14 CDT Starting Lyssa 01/11/18 at 0814, Until Lyssa 01/11/18 at 1206, Symptomatic Hypotension, Anesthesia Intra-op propofol (DIPRIVAN) injection Given 01/11/2018 20 mg INTRA-PROCEDURE MED, Starting Lyssa 01/11/18 11:31 CDT at 0757, Until Lyssa 01/11/18 at 1206, Anesthesia Intra-op Given 01/11/2018 10 mg 11:35 CDT Given 01/11/2018 20 mg 11:37 CDT succinylcholine (ANECTINE) injection Given 01/11/2018 100 mg Intravenous, INTRA-PROCEDURE MED, 07:52 CDT Starting Lyssa 01/11/18 at 0752, Until Lyssa 01/11/18 at 1206, Anesthesia Intra-op Given 01/11/2018 100 mg 08:01 CDT in this encounter
--- OUTSIDE RECORDS SUMMARY | 2018-04-11 10:08 | XMS REPORT | Continuity of Care Document ---
Author Author [facility] Organization [facility] Address Unknown Phone Unavailable Allergies Active Description Code Type Severity Reaction Onset Reported/Identified Relationship to Patient Clinical Status Yes No Known Drug Allergies [id number] Drug Allergy Unknown N/A 04/11/2010 Medications There is no data. Problems Date Dx Coded Attending Type Code Diagnosis Diagnosed By 04/12/2010 Ot 272.4 04/12/2010 Ot 401.9 04/12/2010 Ot 414.01 04/12/2010 Ot 591 04/12/2010 Ot 592.1 04/12/2010 Ot 593.2 04/12/2010 Ot 600.00 04/12/2010 Ot V58.63 10/24/2010 Ot 789.09 04/14/2014 ES CASTANEDA, BENTLEY Matute Ot 592.0 04/14/2014 ES CASTANEDA, BENTLEY Matute Ot 600.00 04/14/2014 ES CASTANEDA, BENTLEY Matute Ot 607.84 03/09/2015 IKE CHRISTINE Ot E78.2 03/09/2015 IKE CHRISTINE Ot I10 03/09/2015 IKE CHRISTINE Ot I44.7 03/09/2015 IKE CHRISTINE Ot R55 03/09/2015 IKE CHRISTINE Ot E78.2 03/09/2015 IKE CHRISTINE Ot I10 03/09/2015 IKE CHRISTINE Ot I44.7 03/09/2015 IKE CHRISTINE Ot R55 03/19/2015 IKE CHRISTINE Ot E78.2 03/19/2015 IKE CHRISTINE Ot I10 03/19/2015 IKE CHRISTINE Ot I44.7 03/19/2015 SIMRAN CHRISTINEDITH K Ot R55 04/08/2015 SHANNON-DARNELL PA, IKE K Ot E78.2 04/08/2015 SHANNON-DARNELL PA, IKE K Ot I10 04/08/2015 SHANNON-DARNELL PA, IKE K Ot I44.7 04/08/2015 SHANNON-DARNELL PA, IKE K Ot R55 07/15/2015 ES CASTANEDA, BENTLEY Matute Ot 562.10 07/15/2015 ES CASTANEDA, BENTLEY A Ot 592.0 07/15/2015 ES CASTANEDA, BENTLEY A Ot 600.00 07/15/2015 ES CASTANEDA, BENTLEY A Ot 592.0 07/15/2015 ES CASTANEDA, BENTLEY A Ot 600.00 07/15/2015 ES CASTANEDA, BENTLEY A Ot 607.84 07/15/2015 SHANNON-DARNELL PA, IEK K Ot E78.2 07/15/2015 SHANNON-DARNELL PA, IKE K Ot I10 07/15/2015 SHANNON-DARNELL PA, IKE K Ot I44.7 07/15/2015 SHANNON-DARNELL PA, IKE K Ot R55 07/15/2015 SHANNON-DARNELL PA, IKE K Ot E78.2 07/15/2015 SHANNON-DARNELL PA, IKE K Ot I10 07/15/2015 SHANNON-DARNELL PA, IKE K Ot I44.7 07/15/2015 SHANNON-DARNELL PA, IKE K Ot R55 08/07/2015 MARAL CASTANEDA, MARLEN Vela Ot E78.5 08/07/2015 MARAL CASTANEDA, MARLEN J Ot I10 08/07/2015 MARAL CASTANEDA, MARLEN Vela Ot I44.7 08/07/2015 MARAL CASTANEDA, MARLEN Vela Ot I48.0 08/07/2015 MARAL CASTANEDA, MARLEN Vela Ot Z53.8 08/07/2015 MARAL CASTANEDA, MARLEN Vela Ot Z79.899 08/12/2015 MARAL CASTANEDA, MARLEN Vela Ot E78.5 08/12/2015 MARAL CASTANEDA, MARLEN Vela Ot I10 08/12/2015 MARAL CASTANEDA, MARLEN Vela Ot I44.7 08/12/2015 MARLEN ALICIA MD Ot I48.0 08/12/2015 MARLEN ALICIA MD Ot Z53.8 08/12/2015 MARLEN ALICIA MD Ot Z79.899 08/19/2015 MARLEN ALICIA MD Ot E78.5 08/19/2015 MARLEN ALICIA MD Ot I10 08/19/2015 MARLEN ALICIA MD Ot I44.7 08/19/2015 MARLEN ALICIA MD Ot I48.0 08/19/2015 MARLEN ALICIA MD Ot Z53.8 08/19/2015 MARLEN ALICIA MD Ot Z79.899 Procedures There is no data. Results There is no data. Encounters ACCT No. Visit Date/Time Discharge Status Pt. Type Provider Facility Loc./Unit Complaint [id number] 07/15/2015 08:17:00 07/15/2015 23:59:59 CLS Outpatient MARLEN ALICIA MD [facility] [id number] 03/16/2015 07:15:00 03/16/2015 23:59:59 CLS Outpatient IKE CHRISTINE [facility] CARD [id number] 03/04/2015 11:30:00 03/04/2015 23:59:59 CLS Outpatient IKE CHRISTINE [facility] CARD [id number] 03/18/2014 11:11:00 03/18/2014 23:59:59 CLS Outpatient BENTLEY SUGGS MD [facility] RAD [id number] 03/01/2013 07:27:00 03/01/2013 23:59:59 CLS Outpatient BENTLEY SUGGS MD [facility] RAD [id number] 10/24/2010 06:46:00 Document Registration [id number] 04/11/2010 07:07:00 Document Registration
[2018-04-11 10:40] VITALS: BP 175/86
[2018-04-11] MEDS ORDERED: LIDOCAINE 1% INJ 20 ML 20 ML VIAL ONE (10:42)
[2018-04-11 11:39] VITALS: BP 175/86
--- NOTE | 2018-04-17 09:03 | Implantation of Loop Monitor ---
Implant of Loop Monitior IMPLANTATION OF LOOP MONITOR REPORT DATE OF PROCEDURE: 04/11/18 PREOP DIAGNOSIS: Atrial fibrillation POSTOP DIAGNOSIS: Atrial fibrillation PROCEDURE DETAILS: The patient is a 77 male with history of paroxysmal atrial fibrillation requiring long-term surveillance. Therefore implantable loop recorder was discussed and agreed with the patient. Informed consent was taken. All risks and complications were discussed at length. The patient was draped and prepped in the usual sterile fashion. Local anesthesia was lidocaine, which was given in the substernal area close to the 4th intercostal space. Loop monitor [employer] Serial Number [id number] was implanted according to the protocol. Steri-Strips were placed at the end of the procedure. There were no complications and the patient tolerated the procedure well. The device was interrogated with a voltage of. ANESTHESIA: Local anesthesia with lidocaine. COMPLICATIONS: None CONTRAST/FLUOROSCOPY: None CONCLUSION: Successful implantation for loop recorder FINAL DIAGNOSIS: Chronic atrial fibrillation Coronary artery disease Hypertension MARLEN ALICIA MD Apr 17, 2018 09:03
== END 2018-04-11 12:08 | disposition home or self-care (01) ==
LOC: CATH 08:57
PROVIDERS: ATTEND Internal Medicine Cardiovascular Disease
DX: I48.0 Paroxysmal atrial fibrillation (principal); I25.10 Atherosclerotic heart disease of native coronary artery without angina pectoris; I10 Essential (primary) hypertension; I44.7 Left bundle-branch block, unspecified; E78.5 Hyperlipidemia, unspecified; I65.23 Occlusion and stenosis of bilateral carotid arteries; N40.0 Benign prostatic hyperplasia without lower urinary tract symptoms; M19.91 Primary osteoarthritis, unspecified site; Z79.01 Long term (current) use of anticoagulants; Z79.899 Other long term (current) drug therapy
CPT/HCPCS: 33282

== ENCOUNTER → 2018-12-12 | Outpatient (CLI) | payer BC, MEDICARE | LOC: CARD 13:32 | PROVIDERS: ATTEND Physician Assistant | DX: I25.10 Atherosclerotic heart disease of native coronary artery without angina pectoris (principal); I10 Essential (primary) hypertension; E78.5 Hyperlipidemia, unspecified; I44.7 Left bundle-branch block, unspecified; I48.0 Paroxysmal atrial fibrillation | CPT/HCPCS: 93351 ==

== ENCOUNTER 2020-09-23 05:36 | Outpatient (CLI) | payer BC, MEDICARE ==
[~2020-09-23] VITALS: Ht 180.3 cm; Wt 90.9 kg
[2020-09-23] MEDS ORDERED: APIX5TAB PO (10:40)
== END 2020-09-24 09:50 | disposition home or self-care (01) ==
LOC: PREOP 05:36
PROVIDERS: ATTEND Specialist
DX: Z01.818 Encounter for other preprocedural examination (principal)

== ENCOUNTER 2020-09-25 05:52 | Day surgery (SDC) | payer BC, MEDICARE ==
[~2020-09-25] VITALS: Ht 180 cm; Wt 90.9 kg
[~2020-09-25 05:52] MED LIST changes: +APIX5TAB PO
[2020-09-25] MEDS ORDERED: acetaZOLAMIDE ER 500 MG CAP (DIAMOX SEQUELS) PO ONE (06:15)
[2020-09-25] MEDS ORDERED: TIMOLOL MALEATE 0.5% 5 ML (TIMOPTIC) BTL OU PRN (06:15)
[2020-09-25] MEDS ORDERED: MOXIFLOXACIN OPHTH SOLN 5 MG/ML 0.3 ML SYRINGE OP ONE (06:15)
[2020-09-25] MEDS ORDERED: POVIDONE (BETADINE) OPHTH SOLN 5% 30 ML OP ONE (06:15)
[2020-09-25] MEDS ORDERED: LIDOCAINE PF 1% 2 ML VIAL IR PRN (06:15)
[2020-09-25] MEDS: TETRACAINE 0.5% OPHTH SOLN 4 ML BTL (SINGLE DOSE ONLY) OU PRN ×4 (06:17→06:36)
[2020-09-25] MEDS: PHENYLEPHRINE 10% OPHTH (NEO-SYN) 5 ML BTL OU SCH ×3 (06:23→06:36)
[2020-09-25] MEDS: TROPICAMIDE 1% OPH SOLN (MYDRIACYL) 15 ML BTL OP SCH ×3 (06:23→06:36)
[2020-09-25 06:27] VITALS: BP 123/72
[2020-09-25] MEDS ORDERED: MIDAZOLAM 2 MG/2 ML (VERSED) VIAL ONE (07:03)
--- NOTE | 2020-09-25 07:26 | Ophthalmologist Pre-Op Note ---
Pre-Operative Progress Note H&P Reviewed The H&P was reviewed, patient examined and no changes noted. Date H&P Reviewed: September 25, 2020 Time H&P Reviewed: 07:26 Pre-Op Dx Cataract, Left Eye TOO RIVERA MD September 25, 2020 07:26
--- NOTE | 2020-09-25 07:44 | Ophthalmology Operative Report ---
Cataract removal/placement IOL PREOPERATIVE DIAGNOSIS: Cataract Left Eye POSTOPERATIVE DIAGNOSIS: Cataract Left Eye PROCEDURE: Cataract removal and placement of posterior chamber implant, left eye SURGEON: Marino Rivera ANESTHESIA: Topical with sedation COMPLICATIONS: None ESTIMATED BLOOD LOSS: Minimal DESCRIPTION OF PROCEDURE: After proper informed consent was obtained, the patient, a 80 male, was taken to the Operating Room and the left eye was anesthetized with tetracaine. The left eye was then prepped and draped in the usual manner. A wire lid speculum was placed. A paracentesis was made at the left hand position. Preservative free lidocaine was injected into the anterior chamber followed by viscoelastic. A clear corneal incision was made in the temporal position. A capsulorrhexis was preformed and the central nuclear and cortical material were removed. The posterior capsule was polished and an Juan Pablo 18.5 AU00T0 was placed into the capsular bag. The residual viscoelastic was aspirated and balanced saline solution was injected into the anterior chamber. Moxifloxacin was injected into the anterior chamber. The wound was checked and found to be water tight. The patient tolerated the procedure well without complications. MARINO RIVERA MD September 25, 2020 07:44
[2020-09-25 07:50] VITALS: BP 120/72
--- NOTE | 2020-09-27 12:40 | Anesthesia-General Post-Op ---
MAC Significant Intra-Op Events Notes post date entry from 09/25/20 at 1315 Post Op Complications Complications None Follow Up Care/Instructions Patient Instructions None needed. Anesthesiology Discharge Order Discharge Order Patient is doing well, no complaints, stable vital signs, no apparent adverse anesthesia problems. No complications reported per nursing. STAN BORGES CRNA September 27, 2020 12:40
== END 2020-09-25 07:55 ==
LOC: SDC 05:52
PROVIDERS: ATTEND Specialist
DX: H25.12 Age-related nuclear cataract, left eye (principal); I10 Essential (primary) hypertension; Z79.01 Long term (current) use of anticoagulants; Z79.82 Long term (current) use of aspirin; Z79.899 Other long term (current) drug therapy
CPT/HCPCS: 66984; V2632

== ENCOUNTER 2020-10-23 06:00 | Day surgery (SDC) | payer BC, MEDICARE ==
[~2020-10-23] VITALS: Ht 180 cm; Wt 90.9 kg
[2020-10-23 06:15] VITALS: BP 130/82
[2020-10-23] MEDS ORDERED: LIDOCAINE PF 1% 2 ML VIAL IR PRN (06:15)
[2020-10-23] MEDS ORDERED: TIMOLOL MALEATE 0.5% 5 ML (TIMOPTIC) BTL OU PRN (06:15)
[2020-10-23] MEDS ORDERED: MOXIFLOXACIN OPHTH SOLN 5 MG/ML 0.3 ML SYRINGE OP ONE (06:15)
[2020-10-23] MEDS ORDERED: POVIDONE (BETADINE) OPHTH SOLN 5% 30 ML OP ONE (06:15)
[2020-10-23] MEDS ORDERED: MIDAZOLAM 2 MG/2 ML (VERSED) VIAL ONE (06:34)
[2020-10-23] MEDS: TETRACAINE 0.5% OPHTH SOLN 4 ML BTL (SINGLE DOSE ONLY) OU PRN ×4 (06:56→07:13)
[2020-10-23] MEDS: TROPICAMIDE 1% OPH SOLN (MYDRIACYL) 15 ML BTL OP SCH ×3 (07:01→07:13)
[2020-10-23] MEDS: PHENYLEPHRINE 10% OPHTH (NEO-SYN) 5 ML BTL OU SCH ×3 (07:01→07:13)
--- NOTE | 2020-10-23 07:15 | Ophthalmologist Pre-Op Note ---
Pre-Operative Progress Note H&P Reviewed The H&P was reviewed, patient examined and no changes noted. Date H&P Reviewed: Oct 23, 2020 Time H&P Reviewed: 07:15 Pre-Op Dx Cataract, Right Eye TOO RIVERA MD Oct 23, 2020 07:15
[2020-10-23] MEDS ORDERED: acetaZOLAMIDE ER 500 MG CAP (DIAMOX SEQUELS) PO ONE (07:30)
--- NOTE | 2020-10-23 07:48 | Ophthalmology Operative Report ---
Cataract removal/placement IOL PREOPERATIVE DIAGNOSIS: Cataract Right Eye POSTOPERATIVE DIAGNOSIS: Cataract Right Eye PROCEDURE: Cataract removal and placement of posterior chamber implant, right eye SURGEON: Marino Rivera ANESTHESIA: Topical with sedation COMPLICATIONS: None ESTIMATED BLOOD LOSS: Minimal DESCRIPTION OF PROCEDURE: After proper informed consent was obtained, the patient, a 80 male, was taken to the Operating Room and the right eye was anesthetized with tetracaine. The right eye was then prepped and draped in the usual manner. A wire lid speculum was placed. A paracentesis was made at the left hand position. Preservative free lidocaine was injected into the anterior chamber followed by viscoelastic. A clear corneal incision was made in the temporal position. A capsulorrhexis was preformed and the central nuclear and cortical material were removed. The posterior capsule was polished and Juan Pablo 18.5 AU00T0 IOL was placed into the capsular bag. The residual viscoelastic was aspirated and balanced saline solution was injected into the anterior chamber. Moxifloxacin was injected into the anterior chamber. The wound was checked and found to be water tight. The patient tolerated the procedure well without complications. MARINO RIVERA MD Oct 23, 2020 07:48
--- NOTE | 2020-10-23 07:56 | Anesthesia-General Post-Op ---
MAC Patient Condition Mental Status/LOC: Same as Preop Cardiovascular: Satisfactory Nausea/Vomiting: Absent Respiratory: Satisfactory Pain: Controlled Complications: Absent Post Op Complications Complications None Follow Up Care/Instructions Patient Instructions None needed. Anesthesiology Discharge Order Discharge Order Patient is doing well, no complaints, stable vital signs, no apparent adverse anesthesia problems. REYES PEREZ DO Oct 23, 2020 07:56
[2020-10-23 07:57] VITALS: BP 131/72
== END 2020-10-23 07:59 | disposition home or self-care (01) ==
LOC: SDC 06:00
PROVIDERS: ATTEND Specialist
DX: H25.11 Age-related nuclear cataract, right eye (principal); I10 Essential (primary) hypertension; Z79.899 Other long term (current) drug therapy
CPT/HCPCS: 66984; V2632

== ENCOUNTER → 2020-12-14 | Outpatient (CLI) | payer BC, MEDICARE | LOC: CARD 14:00 | PROVIDERS: ATTEND Internal Medicine Cardiovascular Disease | DX: I10 Essential (primary) hypertension (principal) | CPT/HCPCS: 93306 ==

== ENCOUNTER → 2022-08-03 | Outpatient (CLI) | payer BC, MEDICARE | LOC: CARD 08:44 | PROVIDERS: ATTEND Internal Medicine Cardiovascular Disease | DX: I11.9 Hypertensive heart disease without heart failure (principal); I34.0 Nonrheumatic mitral (valve) insufficiency; I25.10 Atherosclerotic heart disease of native coronary artery without angina pectoris | CPT/HCPCS: 93306 ==

== ENCOUNTER → 2022-09-12 | Outpatient (CLI) | payer MEDICARE, OTHER ==
[~2022-09-12] VITALS: Ht 180 cm; Wt 88.0 kg
[~2022-09-12] MED LIST changes: +REGADENOSON 0.4 MG/5 ML SYR (LEXISCAN) IV ONE
[2022-09-12] MEDS: CATHETER FLUSH 10 ML SYR IVP PRN ×2 (07:14→09:05)
[2022-09-12 09:04] VITALS: BP 208/83
--- NOTE | 2022-09-12 12:41 | Cardiology Stress Test Report ---
Stress Test Report Date of Procedure/Referring: Date of Procedure: September 12, 2022 PCP Naveen Rubin MD Admitting Physician Admitting Physician: Attending Physician: Marlen Alicia MD Indications: CAD Baseline Heart Rate: 64 Baseline Blood Pressure: Blood Pressure Systolic: 208 Blood Pressure Diastolic: 83 Baseline Vitals Vital Signs Date Time Temp Pulse Resp B/P (MAP) Pulse Ox O2 Delivery O2 Flow Rate FiO2 09/12/22 09:04 64 208/83 (124) 95 Room Air Baseline EKG: Baseline EKG: LBBB Summary After explaining the procedure to the patient, he signed a consent and then brought to the stress nuclear laboratory. Patient received 0.4 mg Lexiscan for stress test, ECG, heart rate and blood pressure were monitored continuously. Resting and stress dose of radio tracer were injected, imaging was acquired and reviewed in short axis, horizontal long axis and vertical long axis views. TID: 1.16 SSS: 5 SDS: 2 EF: 61 Patient tolerated Lexiscan well Baseline sinus rhythm with left bundle branch block with occasional PVCs Diaphragmatic attenuation with fixed defect involving the inferior apical segment and the septal segment of the inferolateral wall, subtle reversibility was noted. Overall no significant ischemia or infarction on SPECT images Normal left ventricular size, ejection fraction 61% MARLEN ALICIA MD September 12, 2022 12:41
== END ==
LOC: CARD 06:53
PROVIDERS: ATTEND Internal Medicine Cardiovascular Disease
DX: I10 Essential (primary) hypertension (principal); I25.10 Atherosclerotic heart disease of native coronary artery without angina pectoris; R07.2 Precordial pain
CPT/HCPCS: 78452; 93017; A9502

== ENCOUNTER 2023-01-13 18:51 | Emergency (ER) | payer MEDICARE ==
[~2023-01-13] VITALS: Ht 180.3 cm; Wt 88.5 kg
[~2023-01-13 18:51] MED LIST changes: -REGADENOSON 0.4 MG/5 ML SYR (LEXISCAN) IV ONE
--- NOTE | 2023-01-13 19:03 | ED Chest Pain ---
General Chief Complaint: Chest Pain Stated Complaint: SOA TIGHTNESS IN CHEST Source: patient Exam Limitations: no limitations History of Present Illness Date Seen by Provider: Jan 13, 2023 Time Seen by Provider: 19:03 Initial Comments Mr. Frances is an 82-year-old male, relatively healthy history of hypertension and remote A-fib status post ablation who presents to the emergency room with a chief complaint of shortness of breath today and some tightness in his chest that he noticed around 5 PM. He normally walks 1 to 3 miles a day. He was doing this at about 930 and noticed after about 6 laps he was more short of breath than usual. He went home, wrote on his riding lawnmower and continued to be a little short of breath. Throughout the day any activity made him feel the same shortness of breath. Around 5 PM he noticed the tightness. He denies that it was actually pain. He denies radiation of the discomfort. No associated nausea or diaphoresis. He states that when he was walking in from the parking lot he also felt a little short of breath but no longer has the tightness. He did chew up for Tums throughout the course of the day with "heartburn" symptoms as well. (doesn't usually have "heartburn" but states they have recently changed their diet and are trying to eat "healthier"). He no longer has those symptoms. He has had some congestion over the last 3 weeks but COVID tested negative. No fevers or chills. No productive cough. No abdominal pain. No other GI or complaints. No swelling in his legs. He had a stress echocardiogram done in September with Dr. Madsen that was relatively normal. He denies any recent prolonged immobility or long travel. He is on chronic anticoagulation post ablation for afib. He is not a diabetic. He has never been a smoker. No family history of siblings with coronary artery disease. Last heart cath at about 5-6 years ago. No history of CAD Timing/Duration: other (8hr) Severity/Quality: mild, tightness Location: central Radiation: no radiation Activities at Onset: activity Prior CP/Workup: echocardiography, stress test Modifying Factors: improves with rest ASA po SHUTTLE FIXER: No NTG SL SHUTTLE FIXER: No Associated Symptoms: heartburn, shortness of breath Allergies and Home Medications Allergies Coded Allergies: iodine (Verified Allergy, Unknown, Rash, 09/25/20) IV IODINE Patient Home Medication List Home Medication List Reviewed: Yes Apixaban (Eliquis) 5 Mg Tablet, 5 MG PO BID, (Reported) Entered as Reported by: RADHAMES PRESSLEY on 09/23/20 1040 Aspirin (Aspirin Ec 81 Mg) 81 Mg Tabec, 1 TAB PO DAILY, (Reported) Entered as Reported by: MILAN BAUMANN on 04/11/10527 Atorvastatin (Lipitor 20MG) 20 Mg Tablet, 1 TAB PO DAILY, (Reported) Entered as Reported by: MILAN BAUMANN on 04/11/10527 Calcium Carbonate (Tums) 500 Mg Tab.chew, 1 TAB PO PRN, (Reported) Entered as Reported by: MILAN BAUMANN on 04/11/10527 Finasteride (Proscar) 5 Mg Tab, 1 TAB PO DAILY, (Reported) Entered as Reported by: MILAN BAUMANN on 04/11/10527 Melatonin (Melatonin) 5 Mg Capsule, 1 TAB PO HS PRN, (Reported) Entered as Reported by: MILAN BAUMANN on 04/11/10527 Metoprolol Succinate (Toprol Xl) 25 Mg Tab, 1 TAB PO DAILY, (Reported) Entered as Reported by: MILAN BAUMANN on 04/11/10527 Terazosin Hcl (Hytrin 5MG) 5 Mg Capsule, 1 TAB PO DAILY, (Reported) Entered as Reported by: MILAN BAUMANN on 04/11/10527 Review of Systems Review of Systems Constitutional: see HPI EENTM: Nose Congestion Respiratory: SOA With Exertion Cardiovascular: Chest Pain ("tightness") Gastrointestinal: No Symptoms Reported Genitourinary: No Symptoms Reported Musculoskeletal: no symptoms reported Skin: no symptoms reported Psychiatric/Neurological: No Symptoms Reported All Other Systems Reviewed Negative Unless Noted: Yes Past Scllylt-Oqerbq-Szwyub Hx Past Medical History Reproductive Disorders: No Physical Exam Vital Signs Vital Signs - First Documented 01/13/23 18:54 Temp 37.0 Pulse 72 Resp 16 B/P (MAP) 172/86 (114) Pulse Ox 94 Capillary Refill : Height, Weight, BMI Height: 6'0.00" Weight: 201lbs. 0.0oz. 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 Norm as Tested Skin: Normal Color, Warm/Dry Progress/Results/Core Measures Results/Orders Lab Results Laboratory Tests Test 01/13/23 18:58 01/13/23 21:00 Range/Units White Blood Count 9.0 4.3-11.0 10^3/uL Red Blood Count 4.47 4.30-5.52 10^6/uL Hemoglobin 14.3 13.3-17.7 g/dL Hematocrit 41 40-54 % Mean Corpuscular Volume 92 80-99 fL Mean Corpuscular Hemoglobin 32 25-34 pg Mean Corpuscular Hemoglobin Concent 35 32-36 g/dL Red Cell Distribution Width 12.4 10.0-14.5 % Platelet Count 194 130-400 10^3/uL Mean Platelet Volume 8.7 L 9.0-12.2 fL Immature Granulocyte % (Auto) 0 % Neutrophils (%) (Auto) 68 42-75 % Lymphocytes (%) (Auto) 14 12-44 % Monocytes (%) (Auto) 9 0-12 % Eosinophils (%) (Auto) 9 0-10 % Basophils (%) (Auto) 1 0-10 % Neutrophils # (Auto) 6.1 1.8-7.8 10^3/uL Lymphocytes # (Auto) 1.3 1.0-4.0 10^3/uL Monocytes # (Auto) 0.8 0.0-1.0 10^3/uL Eosinophils # (Auto) 0.8 H 0.0-0.3 10^3/uL Basophils # (Auto) 0.1 0.0-0.1 10^3/uL Immature Granulocyte # (Auto) 0.0 0.0-0.1 10^3/uL Prothrombin Time 13.2 12.2-14.7 SEC INR Comment 1.0 0.8-1.4 Activated Partial Thromboplast Time 29 24-35 SEC Sodium Level 134 L 135-145 MMOL/L Potassium Level 4.0 3.6-5.0 MMOL/L Chloride Level 99 98-107 MMOL/L Carbon Dioxide Level 24 21-32 MMOL/L Anion Gap 11 5-14 MMOL/L Blood Urea Nitrogen 11 7-18 MG/DL Creatinine 0.90 0.60-1.30 MG/DL Estimat Glomerular Filtration Rate 86 BUN/Creatinine Ratio 12 Glucose Level 106 H 70-105 MG/DL Calcium Level 9.5 8.5-10.1 MG/DL Corrected Calcium 9.3 8.5-10.1 MG/DL Magnesium Level 2.1 1.6-2.4 MG/DL Total Bilirubin 0.9 0.1-1.0 MG/DL Aspartate Amino Transf (AST/SGOT) 20 5-34 U/L Alanine Aminotransferase (ALT/SGPT) 22 0-55 U/L Alkaline Phosphatase 100 40-136 U/L Troponin I < 0.028 0.028 <0.028 NG/ML Total Protein 6.9 6.4-8.2 GM/DL Albumin 4.2 3.2-4.5 GM/DL My Orders Orders - RUSTY CHO MD Cbc With Automated Diff (01/13/23 19:03) Magnesium (01/13/23 19:03) Chest 1 View, Ap/Pa Only (01/13/23 19:03) Ekg Tracing (01/13/23 19:03) Comprehensive Metabolic Panel (01/13/23 19:03) Protime With Inr (01/13/23 19:03) Partial Thromboplastin Time (01/13/23 19:03) O2 (01/13/23 19:03) Monitor-Rhythm Ecg Trace Only (01/13/23 19:03) Lipid Panel (01/14/23 06:00) Ed Iv/Invasive Line Start (01/13/23 19:03) Troponin I Sonal (01/13/23 19:03) Aspirin Chewable Tablet (Aspirin Chewabl (01/13/23 19:15) Troponin I Sonal (01/13/23 21:00) Medications Given in ED Current Medications Medications Dose Ordered Sig/Deep Route Start Time Stop Time Status Last Admin Dose Admin Aspirin 324 mg ONCE ONCE PO 01/13/23 19:15 01/13/23 19:16 DC 01/13/23 19:14 324 MG Vital Signs/I&O 01/13/23 18:54 Temp 37.0 Pulse 72 Resp 16 B/P (MAP) 172/86 (114) Pulse Ox 94 Progress Progress Note : Time: 21:31 Progress Note Patient seen and evaluated by me. Evaluation today includes physical exam, "chest pain protocol" to include CBC, Chem-12, magnesium, troponin, coag profile, single view chest x-ray and EKG. Pertinent physical exam findings well-developed well-nourished male in no acute distress. Exam is generally unremarkable except for a soft systolic 2/6 murmur best heard at the right upper sternal border. Heart is regular, lungs are clear. Abdomen is soft. No lower extremity edema. Neurologic exam is nonfocal. Differential diagnosis based on history and physical exam acid reflux, NSTEMI, bronchitis. Labs independently reviewed and interpreted by me. Patient has a normal CBC, normal Chem-12, magnesium is within normal range, troponin is undetectable. Coags are within normal limits. EKG shows sinus rhythm with a first-degree AV block and left bundle branch block. Chest x-ray no concerning findings for effusion, infiltrate or mediastinal abnormality. Patient was treated in the emergency department with 324 mg of baby aspirin. His vital signs remained stable throughout his stay in the emergency department with no deterioration in his condition. Second troponin was ordered for 9 PM as that would be 4 hours from the onset of the patient's chest "tightness". The second troponin was read as 0.028. This is not a significant elevation and on re-evaluation the patient states he has no SOB, no tightness whatsoever. He is completely comfortable. Findings most compatible with possibly a "GERD-like" issue as no findings concerning for NSTEMI. I have communicated all results to the patient and his who is at the bedside. I have advised should he develop any symptoms over the next 2 days of chest discomfort, especially with nausea, "clamminess" or SOB that he return for re-evaluation, and also advised that these labs do not mean he has no coronary disease, they just indicate he has not had a heart attack today. I advised to call Dr Madsen's office on Monday to schedule an appointment next week. Patient is comfortable with the plan of care, all questions are sought and answered. Initial ECG Impression Date: Jan 13, 2023 Initial ECG Impression Time: 18:56 Initial ECG Rate: 78 Comment LBBB - no significant ST elevation or depression, no ectopy Patient has pre-existing LBBB from at least 2016 on review of old EKG's Diagnostic Imaging Diagonstic Imaging: Xray Plain Films/CT/US/NM/MRI: chest Comments [facility]. [place], [place] NAME: FIDELIA FRANCES [facility] REC#: [id number] PT STATUS: REG ER : 1940 PHYSICIAN: RUSTY CHO MD ADMIT DATE: 01/13/23/ER Signed Date of Exam:01/13/23 CHEST 1 VIEW, AP/PA ONLY INDICATION: Chest pain. COMPARISON: 07/15/2015. FINDINGS: There is minimal discoid atelectasis at the left base. Lungs are otherwise clear. There is no pneumonia or edema. Heart size appropriate. Pulmonary vascularity appears appropriate. There is no fracture. IMPRESSION: No radiographic evidence of an acute cardiopulmonary process. Dictated by: Dictated on workstation # [id number] Dict: 01/13/231942 Trans: 01/13/231947 [facility] [id number] Interpreted by: KALIE SEAY MD Electronically signed by: KALIE SEAY MD 01/13/231947 Departure Impression Primary Impression: Chest pain Qualified Codes: R07.9 - Chest pain, unspecified Disposition: 01 HOME, SELF-CARE Condition: Improved Departure-Patient Inst. Decision time for Depature: 21:44 Referrals: MARLEN MADSEN MD, RYAN C MD (PCP) Primary Care Physician Patient Instructions: Chest Pain (DC) Add. Discharge Instructions: Continue your daily medications as prescribed. If you have any return of "chest tightness" that is concerning, especially with any nausea, "clamminess" or worsening shortness of breath - please return to the Emergency Department for re-evaluation. Please call Dr Madsen's office on Monday morning for a follow up appointment. I am sending a copy of your chart, labs, EKG and chest xray to his office. Copy Copies To 1: MARLEN MADSEN MD, KATHRYN M MD Jan 13, 2023 19:03
[2023-01-13 19:10] LABS: BASOPHILS # (AUTO) 0.1 10^3/uL (0.0-0.1); BASOPHILS % (AUTO) 1 % (0-10); EOSINOPHILS # (AUTO) 0.8 10^3/uL (0.0-0.3); EOSINOPHILS % (AUTO) 9 % (0-10); HEMATOCRIT 41 % (40-54); HEMOGLOBIN 14.3 g/dL (13.3-17.7); LYMPHOCYTES # (AUTO) 1.3 10^3/uL (1.0-4.0); LYMPHOCYTES % (AUTO) 14 % (12-44); MEAN CORPUSCULAR HEMOGLOBIN 32 pg (25-34); MEAN CORPUSCULAR HGB CONC 35 g/dL (32-36); MEAN CORPUSCULAR VOLUME 92 fL (80-99); MEAN PLATELET VOLUME 8.7 fL (9.0-12.2); MONOCYTES # (AUTO) 0.8 10^3/uL (0.0-1.0); MONOCYTES % (AUTO) 9 % (0-12); NEUTROPHILS # (AUTO) 6.1 10^3/uL (1.8-7.8); NEUTROPHILS % (AUTO) 68 % (42-75); PLATELET COUNT 194 10^3/uL (130-400)
[2023-01-13 19:15] LABS: PROTHROMBIN TIME PATIENT 13.2 SEC (12.2-14.7)
[2023-01-13] MEDS ORDERED: ASPIRIN 81 MG CHEWABLE TABLET PO ONE (19:15)
[2023-01-13 19:37] LABS: ALANINE AMINOTRANSFERASE 22 U/L (0-55); ALBUMIN 4.2 GM/DL (3.2-4.5); ALKALINE PHOSPHATASE 100 U/L (40-136); BILIRUBIN,TOTAL 0.9 MG/DL (0.1-1.0); BUN/CREATININE RATIO 12; CALCIUM 9.5 MG/DL (8.5-10.1); CARBON DIOXIDE 24 MMOL/L (21-32); CHLORIDE 99 MMOL/L (98-107); GFR ESTIMATED 86; GLUCOSE 106 MG/DL (70-105); MAGNESIUM 2.1 MG/DL (1.6-2.4); SODIUM 134 MMOL/L (135-145); TOTAL PROTEIN 6.9 GM/DL (6.4-8.2)
--- NOTE | 2023-01-13 19:46 | Diagnostic Imaging Report ---
INDICATION: Chest pain. COMPARISON: 07/15/2015. FINDINGS: There is minimal discoid atelectasis at the left base. Lungs are otherwise clear. There is no pneumonia or edema. Heart size appropriate. Pulmonary vascularity appears appropriate. There is no fracture. IMPRESSION: No radiographic evidence of an acute cardiopulmonary process. Dictated by: Dictated on workstation # [id number]
[2023-01-13 22:01] VITALS: BP 165/90
== END 2023-01-13 22:01 | disposition home or self-care (01) ==
LOC: EDUNIT# 18:51 → ER 18:53
DX: R07.89 Other chest pain (principal); I44.0 Atrioventricular block, first degree; I44.7 Left bundle-branch block, unspecified; I48.91 Unspecified atrial fibrillation; Z79.01 Long term (current) use of anticoagulants
CPT/HCPCS: 36415; 71045; 80053; 83735; 84484; 85025; 85610; 85730; 93005; 93041